=== PATIENT | female | born 1960 | race Caucasian/White ===

== ENCOUNTER → 2017-11-25 13:08 | Outpatient (CLI) | payer MEDICAID, SELFPAY ==
[2017-11-25 15:36] LABS: Absolute Lymphocyte Count 4.76 X10^3/ul (0.83-4.51); Absolute Neutrophil Count 4.5 X10^3/uL (2.0-7.7); Basophil# 0.06 X10^3/uL; Basophil% 0.6 % (0-1); Eosinophil# 0.34 X10^3/uL; Eosinophils% 3.3 % (0-5); Hematocrit 44.1 % (37-47); Hemoglobin 14.5 g/dl (12.0-15.0); Lymphocyte # 4.76 X10^3/ul (4.0); Lymphocyte % 45.7 % (19-41); Mean Corp Hgb Conc 32.9 g/gl (32-36); Mean Corpuscular Hgb 33.2 pg (27.0-32.0); Mean Corpuscular Volume 100.9 fL (81-99); Mean Platelet Vol. 9.6 fl (6.2-12.0); Monocyte# 0.78 X10^3/uL; Monocyte% 7.5 % (0-10); Neutrophil # 4.46 X10^3/uL (2.7-7.7); Neutrophil % 42.7 % (47-70); Platelet Count 376 K/mm3 (150-450); RBC Distribution Width CV 14.2 % (11.6-14.6); RBC Distribution Width SD 52.2 fl (35.1-43.9); Red Blood Count 4.37 M/mm3 (4.2-5.4); White Blood Count 10.4 K/mm3 (4.4-11.0)
[2017-11-25 15:45] LABS: POSITIVE COUNT NO; POSITIVE DIFFERENTIAL NO; POSITIVE MORPHOLOGY NO
[2017-11-25 16:03] LABS: BUN 16 mg/dL (7-18); Creatinine, Serum 1.07 mg/dL (0.55-1.02); EST Glomerular Filtration Rate 56 mL/min (>60); Glucose 97 mg/dL (74-106)
[2017-11-25 16:04] LABS: ALB/GLOB Ratio 0.9 RATIO (0.9-2.4); AST(SGOT) 20 U/L (15-37); Alanine Aminotransfer ALT/SGPT 24 U/L (13-56); Albumin, Serum 3.6 g/dL (3.2-5.0); Alkaline Phosphatase 79 U/L (45-117); Anion Gap 7 (5-15); Calcium,Total 8.7 mg/dL (8.5-10.1); Chloride 105 mmol/L (98-107); Cholesterol 290 mg/dL (200); Est Glom Filt Rate - Afr Amer 68 mL/min (>60); Globulin 4.2 g/dL (2.2-4.2); High Density Lipoprotein 36 mg/dL; Potassium 3.9 mmol/L (3.5-5.1); Protein, Total 7.8 g/dL (6.4-8.2); Sodium Level 138 mmol/L (136-145); Thyroid Stim Hormone (TSH) 0.81 uIU/mL (0.358-3.74); Triglycerides 321 mg/dL; Very Low Density Lipoprotein 64 mg/dL (5-40)
[2017-11-25 16:05] LABS: Vitamin B12 577 pg/mL (211-911)
== END ==
PROVIDERS: Family Provider Family Medicine; PCP Family Medicine; Visit Provider Family Medicine
DX: I10 Essential (primary) hypertension (principal); R53.83 Other fatigue
CPT/HCPCS: 36415; 80053; 80061; 82607; 84443; 85025

== ENCOUNTER 2017-12-22 21:05 | Emergency (ER) | payer MEDICAID, SELFPAY ==
[2017-12-22 21:05] VITALS: BP 133/83; PULSE 100; RESP 16; TEMP 36.4; O2SAT 91; BMI 33.9
--- NOTE | 2017-12-22 21:57 | ED.RN ---
BITES CLEANED WITH SHURCLEANS/NS AND LT HAND SOAKED IN WATER/SHURCLEANSE. LET APPLIED TO RT ANKLE AFTER WOUND CLEANED. SUTURE CART TO BEDSIDE. PT TOLERATED WELL; VISITOR ASSISTING WITH MARIUSZ LOGAN ANIMAL BITE FORM.
[2017-12-22] MEDS: HYDROcodone Bitartrate/Apap 5/325 Tablet PO (22:03)
[2017-12-22] MEDS: Lidocaine/Epi/Tetracaine 50 ML 1 APPLIC TOPICAL (22:04)
[2017-12-22 22:43] VITALS: BP 102/80; PULSE 83; RESP 18; O2SAT 94
--- NOTE | 2017-12-23 00:14 | ED.VISSUMM ---
- ER Visit Summary Date of Service: 12/23/17 Chief Complaint: Multiple dog bites to extremities History of Present Illness: The patient is a 57 F was taking her dog outside in her own yard to let her dog to the bathroom. She has a pit bull. The neighbors 3 pit bulls ran over got in a fight with her dog started mowing her dog as she went to break it up he started biting her and her extremities primarily her left hand which she is left-hand dominant and right ankle. But she is puncture wounds throughout both legs. Police were notified him at the home. Physical Examination: Middle-aged female vital signs are stable afebrile. HEENT exam unremarkable neck nontender lungs clear to auscultation heart regular rhythm no murmur. Chest wall nontender abdomen soft nontender no wounds. She is moving all 4 extremities are neurovascularly intact. She has lacerations which will need to be repaired from dog bites of the left index finger on the dorsum. ?2. Also on the medial aspect of her right ankle. Both upper and lower extremities are neurovascularly intact. There is no pulsatile bleeding. Currently no signs of infection and this occurred within the last several hours. Neurologically she is awake alert without focal motor or sensory deficits. She has normal range of motion in all extremities. Test Results: None done Emergency Department Course and Treatment: All wounds were cleaned and dressed. 4 of the right medial ankle dog bite lacerations need to be closed. 2 of them were 2-1/2 cm. The other 2 or 1 cm. Closed with simple interrupted 5-0 Ethilon sutures. The left index finger had 2 lacerations one at the metacarpal phalangeal joint and one over the dorsum of the proximal phalanx. Both locally anesthetized clean explored. And closed using simple interrupted 5-0 Ethilon sutures. Proper hemostasis wound closure obtained. Patient tolerated all laceration repair as well. Again she has full flexion-extension of all digits of the left hand. There is no signs of joint involvement or tendon laceration. Treatment Plan: Patient was started on Augmentin to try to prevent infection since the wounds are peripheral and of the hands and feet. Sutures will come out in 1 week to 10 days. Watch for any signs of infection. Her tetanus is already up-to-date. Go for pain Disposition: Discharge Impression: Multiple dog bites to her extremities. Dog bite laceration repairs of the: Right ankle of 2-1/2 cm, 2-1/2 cm, 1 cm and 1 cm Right index finger of 2 cm and 2-1/2 cm. (For a total of 6 laceration repairs) This note was generated with [employer] dictation software. It may contain incorrect words, spelling, and punctuation that were not noted in review of the chart prior to signing ED Disposition - Plan for ED Patient: Chief Complaint: Bite Referrals: Jaspreet Ball DO [Primary Care Provider] -
--- NOTE | 2017-12-23 00:23 | ED.DEP ---
ED Disposition - Plan for ED Patient: Disposition: Home or Assisted Living Chief Complaint: Bite Instructions: ED Bite Dog Prescriptions: Hydrocodone Bitart/Apap 5-325 [Winlock 5/325] 1 - 2 tab PO Q4H PRN PRN #20 tab PRN Reason: Pain Amoxicillin/Potassium Clav [Augmentin 875-125 Tablet] 1 ea PO BID #14 tab Referrals: Jaspreet Ball DO [Primary Care Provider] - 10 Day for suture removal Additional Instructions: Keep all wounds clean. Wash twice daily with soap and water or peroxide and water. Apply antibiotic ointment twice daily. Ice and elevate all injured areas. Motrin and limited Winlock for pain. Stitches should be taken out in 7 no more than 10 days. Augmentin 1 pill twice a day to try to prevent the dog bites from getting infected.
--- NOTE | 2017-12-23 00:27 | DCINST.ED_ITS ---
ED Disposition - Plan for ED Patient: Disposition: Home or Assisted Living Chief Complaint: Bite Instructions: ED Bite Dog Prescriptions: Hydrocodone Bitart/Apap 5-325 [Waverly 5/325] 1 - 2 tab PO Q4H PRN PRN #20 tab PRN Reason: Pain Amoxicillin/Potassium Clav [Augmentin 875-125 Tablet] 1 ea PO BID #14 tab Referrals: Jaspreet Ball DO [Primary Care Provider] - 10 Day for suture removal Additional Instructions: Keep all wounds clean. Wash twice daily with soap and water or peroxide and water. Apply antibiotic ointment twice daily. Ice and elevate all injured areas. Motrin and limited [place] for pain. Stitches should be taken out in 7 no more than 10 days. Augmentin 1 pill twice a day to try to prevent the dog bites from getting infected.
[2017-12-23] MEDS: HYDROcodone Bitartrate/Apap 5/325 Tablet PO (00:31)
[2017-12-23] MEDS: Amox/Clavulanate 875 MG Tablet PO (00:31)
[2017-12-23 00:33] VITALS: BP 113/91; PULSE 80; RESP 18
== END 2017-12-23 00:34 | disposition home or self-care (01) ==
PROVIDERS: Emergency Provider Emergency Medicine; Family Provider Family Medicine; PCP Family Medicine
DX: S91.051A Open bite, right ankle, initial encounter (principal); S61.251A Open bite of left index finger without damage to nail, initial encounter; W54.0XXA Bitten by dog, initial encounter; Y93.9 Activity, unspecified; Y92.096 Garden or yard of other non-institutional residence as the place of occurrence of the external cause; Y99.9 Unspecified external cause status; I10 Essential (primary) hypertension; K21.9 Gastro-esophageal reflux disease without esophagitis; F32.9 Major depressive disorder, single episode, unspecified; Z72.0 Tobacco use
CPT/HCPCS: 12004; 99285

== ENCOUNTER → 2018-03-04 06:39 | Outpatient (CLI) | payer MEDICAID, SELFPAY | PROVIDERS: Family Provider Family Medicine; PCP Family Medicine; Visit Provider Surgery | DX: Z01.818 Encounter for other preprocedural examination (principal) ==

== ENCOUNTER → 2019-07-31 12:06 | Outpatient (CLI) | payer MEDICARE, MEDICAID, SELFPAY ==
[2019-07-31 15:47] LABS: Absolute Lymphocyte Count 4.55 X10^3/uL (0.83-4.51); Absolute Neutrophil Count 6.4 X10^3/uL (2.0-7.7); Basophil# 0.08 X10^3/uL; Basophil% 0.6 % (0-1); Eosinophil# 0.35 X10^3/uL; Eosinophils% 2.8 % (0-5); Hematocrit 46.8 % (37-47); Hemoglobin 15.1 g/dL (12.0-15.0); Lymphocyte # 4.55 X10^3/ul (4.0); Lymphocyte % 36.3 % (19-41); Mean Corp Hgb Conc 32.3 g/dL (32-36); Mean Corpuscular Hgb 32.9 pg (27.0-32.0); Mean Platelet Vol. 9.6 fl (6.2-12.0); Monocyte# 1.07 X10^3/uL; Monocyte% 8.5 % (0-10); NRBC Flagged by Analyzer 0 % (0-5); Neutrophil # 6.43 X10^3/uL (2.7-7.7); Neutrophil % 51.3 % (47-70); Platelet Count 281 K/mm3 (150-450); RBC Distribution Width CV 14.6 % (11.6-14.6); RBC Distribution Width SD 55.5 fl (35.1-43.9); Red Blood Count 4.59 M/mm3 (4.2-5.4); White Blood Count 12.5 K/mm3 (4.4-11.0)
[2019-07-31 16:10] LABS: AST(SGOT) 20 U/L (15-37); Alanine Aminotransfer ALT/SGPT 26 U/L (13-56); Alkaline Phosphatase 85 U/L (45-117); Anion Gap 7 (5-15); BUN 14 mg/dL (7-18); Calcium,Total 9.2 mg/dL (8.5-10.1); Chloride 104 mmol/L (98-107); Creatinine, Serum 1.17 mg/dL (0.55-1.02); EST Glomerular Filtration Rate 51 mL/min (>60); Est Glom Filt Rate - Afr Amer 61 mL/min (>60); Globulin 4.2 g/dL (2.2-4.2); Glucose 82 mg/dL (74-106); Lipase 95 U/L (73-393); Protein, Total 8.2 g/dL (6.4-8.2); Sodium Level 137 mmol/L (136-145)
== END ==
PROVIDERS: Family Provider Family Medicine; PCP Family Medicine; Visit Provider Family Medicine
DX: R10.9 Unspecified abdominal pain (principal)
CPT/HCPCS: 36415; 80053; 83690; 85025

== ENCOUNTER → 2019-09-24 | Outpatient (CLI) | payer MEDICARE, MEDICAID, SELFPAY ==
[2019-09-24 12:59] LABS: Rubella IgG < 0.2 IU/mL
[2019-09-25 21:44] LABS: Rubeola IgG Ab > 300.0 AU/mL (Immune >16.4); V-Zoster IgG (Immunity) > 4000 index (Immune >165)
== END | disposition home or self-care (01) ==
LOC: BFHLAB 09:32
PROVIDERS: PCP Family Medicine; Visit Provider Family Medicine
DX: Z90.81 Acquired absence of spleen (principal)
CPT/HCPCS: 36415; 86735; 86762; 86765; 86787

== ENCOUNTER 2020-02-04 18:01 | Emergency (ER) | payer MEDICARE, MEDICAID, SELFPAY ==
[2020-02-04 18:02] VITALS: BP 140/87; PULSE 89; RESP 15; TEMP 36.6; O2SAT 99; BMI 37.0
--- NOTE | 2020-02-04 18:26 | EKG12_ITS ---
Test Reason : Blood Pressure : / mmHG Vent. Rate : 070 BPM Atrial Rate : 070 BPM P-R Int : 142 ms QRS Dur : 092 ms QT Int : 376 ms P-R-T Axes : 031 036 060 degrees QTc Int : 406 ms Normal sinus rhythm Nonspecific T wave abnormality Abnormal ECG Confirmed by COY QUINN, JUAN MANUEL ([id number]), research editor SU GONZALEZ ([id number]) on 02/08/2020 2:05:31 PM Referred By: ROSALINDA Confirmed By:HILLARY CESPEDES MD
--- NOTE | 2020-02-04 18:30 | ED.DCSUM_ITS ---
History of Present Illness Chief Complaint: Abn Labs Detail of Chief Complaint: low platelets Informant: Patient Narrative: Patient had some labs done today that showed thrombocytopenia and she was referred to the ER as a result. She has had an asymptomatic red rash on her legs for several weeks along with easy bruising. She denies any bleeding from anywhere including her bowels. She states in the last week or so she has been having a nonproductive mild cough along with more shortness of breath with exertion than usual. She is a smoker she does not have COPD that she knows of. 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 She has had low- grade fevers for the past week. She denies dyspnea at rest. No edema in her legs. - Past Medical History (1) Hypertension Status: Chronic (2) Anxiety Status: Chronic (3) CAD (coronary artery disease) Status: Chronic (4) Dyslipidemia Status: Chronic (5) Diverticulitis Status: Suspected Past Medical History - Allergies and Home Meds Allergies/Adverse Reactions: Allergies aspirin Adverse Reaction (Verified 02/04/20 18:06) Nausea Primary Care Physician: Jaspreet Ball DO [Primary Care Provider] - Surgical History: - - angioplasty. 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 Partial colectomy due to diverticulitis. Smoking Status: Current every day smoker Alcohol: None Drugs: None - Family History Paternal Family History: Family History (Last Updated 12/04/17 @ 09:40 by Kirsten Ochoa) Brother Diabetes Heart disease Hypertension CAD (coronary artery disease) Family History: Reports: - - father had mi at age 39 Maternal Family History: Family History (Last Updated 12/04/17 @ 09:40 by Kirsten Ochoa) Brother Diabetes Heart disease Hypertension CAD (coronary artery disease) Family History: Reports: - - mother with throat cancer Sibling Family History: Family History (Last Updated 12/04/17 @ 09:40 by Kirsten Ochoa) Brother Diabetes Heart disease Hypertension CAD (coronary artery disease) Family History: Reports: - - sister with multiple sclerosis Review of Systems General: Reports: Fever. Denies: Chills, Sweats Eyes: Denies: Visual changes - bilaterally, Diplopia ENT: Denies: Bilateral ear pain, Rhinorrhea, Sore throat Cardiovascular: Denies: Chest pain, Palpitations Respiratory: Reports: Cough, Dyspnea on exertion. Denies: Sputum, Orthopnea Gastrointestinal: Reports: Abdominal pain - Mild intermittent left upper quadrant pain when having trouble having bowel movement, Constipation - Unsure; soft bowel movements but having less than usual and less often than usual. Denies: Nausea, Vomiting, Diarrhea, Melena, Hematochezia Genitourinary: Denies: Dysuria, Hematuria, Frequency Musculoskeletal: Denies: Back pain, Swelling, Extremity Pain Skin: Reports: Rash. Denies: Wounds Neurological: Denies: Headache, Weakness, Numbness Hematologic: Reports: Easy bruising. Denies: Lymphadenopathy Physical Exam Vital Signs/Narrative: Vital Signs Temp Pulse Resp BP Pulse Ox 02/04/20 18:02 97.9 F 89 15 140/87 H 99 Inital Vital Signs reviewed: Yes General: Well nourished, Well developed, Obese, No Acute Distress Head: Normocephalic, Atraumatic Eyes: Perrl, EOMI ENT: Moist mucous membranes, No rhinorrhea Neck: Supple, Nontender Cardiovascular: Regular rate, Regular rhythm, No murmurs. Negative for: Tach ycardia Respiratory: No distress, CTA bilaterally, Chest nontender Abdomen: Soft, Nontender, Nondistended, Normal bowel sounds Back: Nontender, Normal Inspection. Negative for: CVA tenderness Extremities: Nontender, No edema Skin: Normal color, Rash - Petechial rash mostly bilateral lower extremities Neurological: Alert, Oriented x3, Cranial nerves II-XII grossly intact, Normal Strength, Normal Sensation, Normal Gait Psychological: Normal affect, Normal Mood Diagnostic/Tx/Re-eval Laboratory Tests 02/04/20 02/04/20 Range/Units 18:39 18:39 PT 11.6 L (11.7-14.9) SECONDS INR 0.9 APTT 25.5 (24.1-36.2) Seconds Total Bilirubin 0.30 (0.20-1.00) mg/dL Direct Bilirubin 0.10 (0.00-0.30) mg/dL AST 18 (15-37) U/L ALT 29 (13-56) U/L Alkaline Phosphatase 86 (45-117) U/L Total Protein 7.9 (6.4-8.2) g/dL Albumin 3.8 (3.2-5.0) g/dL Globulin 4.1 (2.2-4.2) g/dL Clinical Impression(s) from Imaging Studies Chest X-Ray 02/04/20 19:06 IMPRESSION: Normal x-ray examination of the chest. Electronically Signed: Jeremy Obrien MD at 19:18 EDT Tel , Service support , - Rhythm Strip Rhythm Strip: Sinus Rhythm Rate: 70 Ectopy: None - EKG Initial EKG Interpretation: Sinus Rhythm, No Acute Injury Pattern, Non-Specific ST Changes - Medical Decision Making Discussed with Dr. Juárez, hematology oncology. With unexplained thrombocytopenia severe, his concern is that it would be difficult to rule out TTP in this patient, and in context of that, patient requires transfer to a tertiary care center. I did give the patient a platelet transfusion. I added liver enzymes which were unremarkable. The patient does not have risk specifically for COVID 19, she has had no exposure that she knows of, however given her symptoms, I am sending a swab to be done stat. Patient wants to go to [facility], accepted there by Dr. Wilson, who agreed with giving the platelets and prefer to date be given prior to transferring the patient. She really wants to drive herself, so we will make sure she gets the platelets prior to being se nt. ED Disposition - Plan for ED Patient: Disposition: [facility] Diagnosis: Thrombocytopenia, Subjective fever, Dyspnea on exertion Referrals: Jaspreet Ball DO [Primary Care Provider] -
--- NOTE | 2020-02-04 19:06 | RAD_ITS ---
STUDY: X-RAY CHEST REASON FOR EXAM: Female, 59 years old. LOW PLATELET COUNT TECHNIQUE: Single frontal view of the chest. COMPARISON: 08/03/2015 FINDINGS: The lungs are clear and expanded. There is no demonstrated pleural abnormality. Normal size heart. Normal mediastinum and joseph. Normal visualized pulmonary arteries. Normal visualized aortic arch and descending thoracic aorta. Normal visualized thoracic spine. Normal visualized ribs, clavicles, and shoulders. There is no demonstrated abnormality of the visualized soft tissue structures of the upper abdomen. RAD/Chest 1 View (Portable) IMPRESSION: Normal x-ray examination of the chest. Electronically Signed: Jeremy Obrien MD at 19:18 EDT Tel , Service support ,
[2020-02-04 19:09] LABS: International Normalized Ratio 0.9; Prothrombin Time (Protime)PT. 11.6 SECONDS (11.7-14.9)
[2020-02-04 19:10] LABS: Partial Thromboplast Time 25.5 Seconds (24.1-36.2)
[2020-02-04 19:14] LABS: AST(SGOT) 18 U/L (15-37); Alanine Aminotransfer ALT/SGPT 29 U/L (13-56); Albumin, Serum 3.8 g/dL (3.2-5.0); Alkaline Phosphatase 86 U/L (45-117); Globulin 4.1 g/dL (2.2-4.2); Protein, Total 7.9 g/dL (6.4-8.2)
--- NOTE | 2020-02-04 22:18 | ED.RN ---
THIS RN SPOKE WITH THE DAUGHTER OF ART NOVAK WHO WAS WITH HER MOTHER. THIS RN INFORMED THEM THAT SHE CANNOT LEAVE WITH IV LINES IN AND THAT SHE NEEDED TO COME BACK UP FOR THEM TO BE DISCONTINUED OR VERIFIED BY AN RN THAT THEY WERE APPROPRIATELY DISCONTINUED. 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 I INFORMED THEM WHILE THAT MAY BE THE CASE WE FOR LIABILITY AND PATIENT SAFETY REASONS NEED TO SEE THEY ARE OUT. THE DAUGHTER STATES THEY ARE IN [place] AND HEADED TO [facility] NOT TO RETURN.
--- NOTE | 2020-02-04 22:36 | ED.RN ---
[id number] DR. HERNANDEZ NOTIFIED OF PT LEAVING PRIOR TO PLATELETS BEING GIVEN.
--- NOTE | 2020-02-05 00:17 | ED.RN ---
pt walked to restroom. after return she asked how soon she could leave. was consulted. pt was instructed at this time that we where waiting on platelets from lab. once those were infused pt would be watched for a will and then released to travel by person vehicle to transfer facility. pt was informed that preparing the platlets takes time and that we currently did not have and eta on her departure. pt expressed understand. patricia beverly rn
--- NOTE | 2020-02-05 00:23 | ED.RN ---
lesvia meade. unable to determine if patient removed her IV. daughter was called by charge weigher and daughter stated it was removed. patricia beverly rn
== END 2020-02-05 00:25 | disposition short-term general hospital (02) ==
PROVIDERS: Emergency Provider Emergency Medicine; PCP Family Medicine
DX: D69.6 Thrombocytopenia, unspecified (principal); R06.09 Other forms of dyspnea; R50.9 Fever, unspecified; I10 Essential (primary) hypertension; F41.9 Anxiety disorder, unspecified; E78.5 Hyperlipidemia, unspecified; F17.200 Nicotine dependence, unspecified, uncomplicated; E66.9 Obesity, unspecified; Z79.899 Other long term (current) drug therapy; R10.9 Unspecified abdominal pain; R06.00 Dyspnea, unspecified
CPT/HCPCS: 36415; 71045; 80053; 80076; 85025; 85610; 85730; 86900; 86901; 87635; 93005; 99284; G2023; A4216; U0003

== ENCOUNTER → 2020-02-04 | Outpatient (CLI) | payer MEDICARE, MEDICAID, SELFPAY ==
[2020-02-04 15:27] LABS: Absolute Lymphocyte Count 3.57 X10^3/uL (0.83-4.51); Basophil# 0.02 X10^3/uL; Basophil% 0.3 % (0-1); Eosinophil# 0.21 X10^3/uL; Eosinophils% 2.9 % (0-5); Hematocrit 39.2 % (37-47); Hemoglobin 13.1 g/dL (12.0-15.0); Lymphocyte # 3.57 X10^3/ul (4.0); Lymphocyte % 48.8 % (19-41); Mean Corp Hgb Conc 33.4 g/dL (32-36); Mean Corpuscular Hgb 37.4 pg (27.0-32.0); Mean Platelet Vol. 13.2 fl (6.2-12.0); Monocyte# 0.54 X10^3/uL; Monocyte% 7.4 % (0-10); NRBC Flagged by Analyzer 0 % (0-5); Neutrophil # 2.96 X10^3/uL (2.7-7.7); Neutrophil % 40.5 % (47-70); POSITIVE COUNT YES; POSITIVE MORPHOLOGY YES; RBC Distribution Width CV 17.8 % (11.6-14.6); RBC Distribution Width SD 72.6 fl (35.1-43.9); White Blood Count 7.3 K/mm3 (4.4-11.0)
[2020-02-04 15:35] LABS: ALB/GLOB Ratio 0.9 RATIO (0.9-2.4); AST(SGOT) 18 U/L (15-37); Alanine Aminotransfer ALT/SGPT 26 U/L (13-56); Albumin, Serum 3.9 g/dL (3.2-5.0); Alkaline Phosphatase 89 U/L (45-117); Anion Gap 8 (5-15); BUN 13 mg/dL (7-18); BUN/Creat Ratio 10.7 RATIO (10-20); Chloride 103 mmol/L (98-107); Creatinine, Serum 1.22 mg/dL (0.55-1.02); EST Glomerular Filtration Rate 48 mL/min (>60); Est Glom Filt Rate - Afr Amer 58 mL/min (>60); Globulin 4.4 g/dL (2.2-4.2); Glucose 145 mg/dL (74-106); Protein, Total 8.3 g/dL (6.4-8.2); Sodium Level 137 mmol/L (136-145)
[2020-02-04 15:52] LABS: Differential Indicated SCAN CRITERIA MET; Platelet Count 8 K/mm3 (150-450)
[2020-02-04 17:01] LABS: Anisocytosis 1+; Macrocytosis 1+; Platelet Estimate MKD DEC (ADEQ); Red Cell Morphology N CHROM NORMAL (NORM C&C)
[2020-02-05 11:47] LABS: Pathologist Review Reviewed
== END | disposition home or self-care (01) ==
LOC: BFHLAB 11:08
PROVIDERS: PCP Family Medicine; Visit Provider Family Medicine
DX: R10.9 Unspecified abdominal pain (principal)
CPT/HCPCS: 36415; 80053; 85025

== ENCOUNTER → 2020-02-11 08:18 | Outpatient (CLI) | payer MEDICARE, MEDICAID, SELFPAY ==
[2020-02-04 18:02] VITALS: BMI 37.0
--- NOTE | 2020-02-11 08:25 | RAD_ITS ---
STUDY: X-RAY - ESOPHAGUS (BARIUM SWALLOW) WITH FLUOROSCOPY REASON FOR EXAM: Female, 59 years old. Dysphagia, x1 year getting worse, food getting stuck distally TECHNIQUE: 18 view(s) of the esophagus were obtained following swallowing of barium. FLUOROSCOPY TIME (if supplied): (0:37) minutes/seconds COMPARISON: None. FINDINGS: There is no demonstrated esophageal foreign body. There is no demonstrated stricture or mucosal abnormality. There is a small hiatal hernia of the fundus of the stomach. No evidence of gastroesophageal reflux. The patient ingested a 12 mm tablet of barium without any difficulty. Normal visualized aortic arch and descending thoracic aorta. Normal visualized pulmonary parenchyma. There are diffuse degenerative changes of the visualized thoracic spine. RAD/Esophagus Dual Contrast IMPRESSION: Small hiatal hernia without gastroesophageal reflux. The patient ingested a 12 mm tablet that barium without any difficulty. Electronically Signed: Mike Arango, at 9:49 EDT , Service support ,
== END ==
PROVIDERS: PCP Family Medicine; Referring Provider Family Medicine; Visit Provider Family Medicine
DX: R13.10 Dysphagia, unspecified (principal)
CPT/HCPCS: 74221

== ENCOUNTER → 2020-02-22 | Outpatient (CLI) | payer MEDICARE, MEDICAID, SELFPAY ==
[2020-02-11 10:45] VITALS: BMI 36.8
[2020-02-15 09:01] VITALS: BMI 36.8
[2020-02-22] VITALS (10 sets, daily range): BP systolic 95–128; BP diastolic 62–83; PULSE 73–89; RESP 12–21; TEMP 36.6; O2SAT 92–98; BMI 36.8
--- NOTE | 2020-02-22 | IMM_PTH ---
PATIENT: ART NOVAK LOC: CT U#:[id number] AGE/SX: 59/F ROOM: RE02/22/[address]: Dr. Cj Arroyo MD : 1960 BED: DIS: 02/22/2020 SPEC #: [id number] RECD: 02/24/20 10:03 STATUS: JASON REQ #: [id number] HANNA: 02/22/20 00:[address]: Cj Arroyo DEPT: IMMUNOHISTOCHEMISTRY RECD BY: Naomie Hernandez ENTERED: 02/24/20 10:10 SP TYPE: IMMUNO OTHR DR: Dr. Jaspreet Ball DO Tissues: A - Bone marrow of iliac crest B - Bone marrow of iliac crest Procedures: CD138 (add) CD20 (add) CD34 (add) CD45 (add) CD5 (add) CD79A (add) KAPPA (add) LAMBDA (add) CD3 (initial) PHYSICIAN & INSTITUTION [place] [id number] SPECIMEN INFORMATION: Tissue Source: A - Bone marrow biopsy, core, B - Bone marrow biopsy, clot Clinical Info: Macrocytosis, thrombocytopenia, rule out MDS Specimen Number: [id number] A & B CPT code: 14529 x2, 45558 x16 METHODOLOGY: Deparaffinized sections of prefer/formalin-fixed tissue or PAP/DQ stained slides are incubated with monoclonal/polyclonal antibodies/oligonucleotide probes. Localization is made via biotin free immunoperoxidase method. Appropriate controls are performed and reacted as expected. Results on target cell population are indicated in the following table: RESULTS: ANTIBODY / CLONE RESULT Block A CD3 (PS1) positive CD5 (SP10) positive CD20 (L26) positive CD45 (RP2/18) positive CD79a (11E3) positive CD138 (B-A38) positive [place] (polyclonal) positive Lambda (polyclonal) positive CD34 (QBEnd-10) negative Block B CD3 (PS1) positive CD5 (SP10) positive CD20 (L26) positive CD45 (RP2/18) positive CD79a (11E3) positive CD138 (B-A38) positive [place] (polyclonal) positive Lambda (polyclonal) positive CD34 (QBEnd-10) negative These tests were developed and their performance characteristics determined by [facility]. They may not have been cleared or approved by the U.S. Food and Drug Administration. The FDA has determined that such clearance or approval is not necessary. The above immunohistochemical/dualISH markers are ordered and reviewed by the Pathologist. INTERPRETATION: A. Bone marrow biopsy, core: Interstitial infiltrates of small lymphocytes and minute lymphoid aggregates are noted, polytypic in nature, favor benign. Minimal increase of plasma cells are noted, polytypic in nature. Increased number of blasts are not seen. B. Bone marrow biopsy, clot: Interstitial infiltrates of small lymphocytes and minute lymphoid aggregates are noted, polytypic in nature, favor benign. Minimal increase of plasma cells are noted, polytypic in nature. Increased number of blasts are not seen. This case has been reviewed in consultation with Dr. Hogan who concurs with the above diagnosis. SJ:susan 02/24/20
--- NOTE | 2020-02-22 | BMB_PTH ---
PATIENT: ART NOVAK LOC: OR U#:[id number] AGE/SX: 59/F ROOM: RE02/22/[address]: Dr. Cj Arroyo MD : 1960 BED: DIS: 02/22/2020 SPEC #: [id number] RECD: 02/22/20 10:05 STATUS: JASON RECharla #: [id number] HANNA: 02/22/20 00:[address]: Cj Arroyo DEPT: BONE MARROW RECD BY: Sy Baker ENTERED: 02/22/20 10:05 SP TYPE: BMB SVETLANA DR: Dr. Jaspreet Ball DO Tissues: A - Bone marrow, NOS B - Bone marrow, NOS C - Bone marrow, NOS Procedures: Decalcification bone/plaque Bone Marrow Aspiration Bone Marrow Core Biopsy Iron Stain Bone Marrow HEADER OPERATION: Bone marrow biopsy and aspiration PRE-OP DIAGNOSIS: Macrocytosis, thrombocytopenia, rule out MDS TISSUE SUBMITTED: A - Core, B - Clot, C - Smears, and send outs (flow, cytogenetics, MDS and AML) BONE MARROW DIAGNOSIS Bone marrow core, clot and aspirate smears: Hypocellular marrow (20 to 50%) with trilineage hematopoiesis and mild decrease of megakaryocytes. Interstitial infiltrates of small lymphocytes and minute lymphoid aggregates noted, polytypic in nature, favor benign. Minimal increase of plasma cells noted, polytypic in nature. Iron - 2+, atypical or ring sideroblasts are not seen. Peripheral blood - macrocytosis and thrombocytopenia. Flow cytometry study from [facility] shows no significant diagnostic immunophenotypic abnormality. The complete flow report is viewable in patient's EMR. Cytogenetic studies are pending at this time. See comment. AMBAR:susan 02/25/20 COMMENT Aspirate smears are aspicular and hypocellular. Immunohistochemistry ([id number]) supports the above diagnosis. Clinical correlation and appropriate follow up are necessary. Case has been reviewed in consultation with Dr. Hogan who concurs with the above diagnosis. IDC:AM BONE MARROW STUDY Slides are reviewed. CBC DATE: 02/22/20 WBC 8.7; RBC 3.15; HGB 12.3; HCT 36.1; MCV 114.6; RDW 17.8; PLTS 25,000 SEGS 50.1%; LYMPHS 39.6%; MONOS 8.6%; EOS 1.1%; BASOS 0.1% PERIPHERAL SMEAR: Submitted. RBC: Macrocytosis WBC: Unremarkable. The WBC count is compatible to as reported above. PLTS: Markedly decreased. BONE MARROW ASPIRATE DIFFERENTIAL: Not performed. ASPIRATE FINDINGS: Site: Not specified Aspicular, Hypocellular Comment: Marked hemodilution is noted. Aspirate smears show erythroid cells, myeloid cells and megakaryocytes. Significant dysplastic changes are not seen. CORE BIOPSY FINDINGS: Site: Not specified Adequacy: Adequate Cellularity: Variable, hypocellular 20-50% M/E ratio: Within normal limits. Megakaryocytes: Present and decreased in number. Bony trabeculae: Unremarkable. Granulomas: Absent. Lymphoid aggregate: minute lymphoid aggregates are noted. Atypical infiltrate: Absent. Comment: Immunohistochemistry ([id number]) shows interstitial infiltrates of small lymphocytes and minute lymphoid aggregates, polytypic in nature, favor benign. Minimal increase of plasma cells is noted, polytypic in nature. Increased number of blasts are not seen. ASPIRATE CLOT FINDINGS: Site: Not specified Marrow particles: A few Cellularity: 20-50% M/E ratio: Within normal limits. Megakaryocytes: Present and decreased in number. Granulomas: Absent. Lymphoid aggregates: Minute lymphoid aggregates are noted. Atypical infiltrates: Absent. Comment: Immunohistochemistry ([id number]) shows interstitial infiltrates of small lymphocytes and minute lymphoid aggregates, polytypic in nature, favor benign. Minimal increase of plasma cells is noted, polytypic in nature. Increased number of blasts are not seen. SPECIAL STAINS WITH MATCHED CONTROLS: Iron: 2+, atypical or ringed sideroblasts are not seen. Reticulin: No significant increase of reticulin fibers is noted. PAS: Highlights myeloid cells and megakaryocytes. BONE MARROW GROSS A - Received is a container labeled with the patient's name and designated bone marrow. The specimen consists of a piece of pelaez bone measuring 1 cm in length and 0.1 cm in diameter. The specimen is totally submitted in one cassette after decalcification. B - Received labeled with the patient's name and designated bone marrow is a specimen that consists of approximately 8 cc of bloody fluid that on filtration yields multiple minute fragments of blood clots measuring in aggregate 3 x 2.5 x 0.6 cm. The specimen is totally submitted in one cassette. C - Also received are 23 unstained and 4 Cohen stained, 1 PAS stained, 1 iron stained slides (29 total). The unstained slides are submitted for appropriate staining. Also received are two green top tubes which are sent to our reference lab for flow, cytogenetics, MDS and AML. / SJ:rg 02/22/20 TC:5 CPT: 32452, 30267, 28361 x2, 35386 x3, 70287 ADDENDUM ADDENDUM ADDENDUM ADDENDUM ADDENDUM ADDENDUM ADDENDUM ADDENDUM ADDENDUM ADDENDUM ADDENDUM ADDENDUM ADDENDUM ADDENDUM 03/09/2020 11:30 ADDENDUM 03/09/2020 11:30 ADDENDUM 03/09/2020 11:30 ADDENDUM 03/09/2020 11:30 ADDENDUM 03/09/2020 11:30 REPORTS FROM [facility] TEST: Chromosome, leukemia/lymphoma CYTOGENETIC RESULT: 46,XX[20] INTERPRETATION: Normal female karyotype was observed in twenty metaphases analyzed. TEST: AML FISH panel FISH RESULT: Normal AML panel TEST: MDS FISH panel FISH RESULT: Normal MDS panel Please see complete report in e-chart or EMR for further details
--- NOTE | 2020-02-22 07:41 | CT_ITS ---
PROCEDURE: CT GUIDED BONE marrow biopsy of the right iliac bone. DATE: February 22, 2020. INDICATION: Female, 59 years old. Macrocytosis. PHYSICIAN: Mike Arango M.D. RADIATION DOSAGE (If Supplied By Facility): CTDIvol = ( 18 ) mGy, DLP = ( 665.69 ) mGycm. Individualized dose reduction techniques were utilized. PROCEDURE: The risks, benefits, and alternatives to the procedure were explained to the patient. The specific risk of hemorrhage requiring further treatment or intervention was detailed and accepted. Follow-up instructions were discussed with the patient as well. Written informed consent was obtained. The patient was brought into the CT suite and placed in the prone position. . An appropriate entry site was identified. The overlying skin was prepped and draped in the usual sterile fashion. 1% lidocaine was administered subcutaneously for local anesthesia. Conscious sedation was performed. The patient received 2 mg of Versed and 100 mcg of fentanyl intravenously. The conscious sedation protocol was independently monitored by the department nurse. Conscious sedation was started at 9:06 AM and terminated at 9:[address] guidance, a bone marrow biopsy and bone marrow aspiration of the posterior aspect of the right iliac bone were performed The specimens were then placed in in the appropriate fluid and transported to the laboratory for analysis. Hemostasis was obtained. The patient tolerated the procedure well without immediate complications. CT/Biopsy/Inj or Needle Placement IMPRESSION: Successful CT guided bone marrow biopsy and bone marrow aspirate of the posterior aspect of the right iliac bone, as described above. The conscious sedation protocol was followed. Electronically Signed: Mike Arango, at 10:27 EDT , Service support ,
[2020-02-22 07:59] LABS: Absolute Lymphocyte Count 3.46 X10^3/uL (0.83-4.51); Absolute Neutrophil Count 4.4 X10^3/uL (2.0-7.7); Basophil# 0.01 X10^3/uL; Basophil% 0.1 % (0-1); Eosinophils% 1.1 % (0-5); Hematocrit 36.1 % (37-47); Hemoglobin 12.3 g/dL (12.0-15.0); Lymphocyte # 3.46 X10^3/ul (4.0); Lymphocyte % 39.6 % (19-41); Mean Corp Hgb Conc 34.1 g/dL (32-36); Mean Corpuscular Volume 114.6 fL (81-99); Mean Platelet Vol. 11.8 fl (6.2-12.0); Monocyte# 0.75 X10^3/uL; Monocyte% 8.6 % (0-10); NRBC Flagged by Analyzer 0 % (0-5); Neutrophil # 4.37 X10^3/uL (2.7-7.7); Neutrophil % 50.1 % (47-70); POSITIVE COUNT YES; POSITIVE MORPHOLOGY YES; RBC Distribution Width CV 17.8 % (11.6-14.6); RBC Distribution Width SD 74.9 fl (35.1-43.9); Red Blood Count 3.15 M/mm3 (4.2-5.4); White Blood Count 8.7 K/mm3 (4.4-11.0)
[2020-02-22 08:01] LABS: Differential Indicated SCAN CRITERIA MET; Platelet Count 25 K/mm3 (150-450)
[2020-02-22 08:38] LABS: International Normalized Ratio 0.9; Prothrombin Time (Protime)PT. 11.5 SECONDS (11.7-14.9)
[2020-02-22 08:39] LABS: Partial Thromboplast Time 23.3 Seconds (24.1-36.2)
[2020-02-22 08:52] LABS: Anisocytosis 2+; Macrocytosis 2+; Platelet Estimate MKD DEC (ADEQ); Poikilocytosis 1+
[2020-02-22] MEDS: Midazolam 2 MG/2 ML Syringe IV (09:06)
[2020-02-22] MEDS: fentaNYL 100 MCG/2 ML Ampul IV ×2 (09:07→09:19)
[2020-02-22 09:49] LABS: Pathologist Review May foll
== END | disposition home or self-care (01) ==
LOC: CT 07:41
PROVIDERS: PCP Family Medicine; Referring Provider Internal Medicine Medical Oncology; Visit Provider Internal Medicine Medical Oncology
DX: Z01.818 Encounter for other preprocedural examination (principal); D69.3 Immune thrombocytopenic purpura; D75.89 Other specified diseases of blood and blood-forming organs
CPT/HCPCS: 38221; 36415; 77012; 85025; 85610; 85730; 88305; 88311; 88313; 88341; 88342; 99156; 99157; J7040; A4216

== ENCOUNTER 2020-05-10 03:39 | Emergency (ER) | payer MEDICARE, MEDICAID, SELFPAY ==
[2020-03-17 11:14] VITALS: BMI 36.9
[2020-05-10 03:41] VITALS: BP 153/70; PULSE 77; RESP 16; TEMP 36.6; O2SAT 98; BMI 36.3
--- NOTE | 2020-05-10 03:46 | ED.DCSUM_ITS ---
History of Present Illness Chief Complaint: Abd Pain Narrative: 59-year-old female presenting with abdominal pain. She states it is generalized and hurts all over. She has some associated nausea. She states that yesterday her lower back started to hurt and she thought maybe she just twisted it however 6 PM last evening her abdomen started to hurt and became more painful overnight. 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 This was performed at [facility]. Patient denies any fevers. She denies vaginal or urinary complaints. She denies constipation. - Past Medical History (1) Anxiety Status: Chronic (2) CAD (coronary artery disease) Status: Chronic (3) Chronic ITP (idiopathic thrombocytopenia) Status: Chronic (4) Dyslipidemia Status: Chronic Past Medical History - Allergies and Home Meds Allergies/Adverse Reactions: Allergies aspirin Adverse Reaction (Verified 05/10/20 03:45) Nausea Primary Care Physician: Jaspreet Ball DO [Primary Care Provider] - Prior records reviewed: Yes Past Medical History: - - Reviewed and problem list Surgical History: - - angioplasty. 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 Partial colectomy due to diverticulitis. Lives: Alone Smoking Status: Current every day smoker Alcohol: None Drugs: None - Family History Paternal Family History: Family History (Last Reviewed 04/14/20 @ 10:22 by Gwendolyn Diamond) Brother Diabetes CAD (coronary artery disease) Heart disease Hypertension High cholesterol Mother Laryngeal cancer Osteoarthritis Father Heart disease Myocardial infarction Aunt Diabetes Lung cancer Uncle Diabetes Grandmother CVA (cerebral vascular accident) Diabetes Family History: Reports: - - father had mi at age 39 Maternal Family History: Family History (Last Reviewed 04/14/20 @ 10:22 by Gwendolyn Diamond) Brother Diabetes CAD (coronary artery disease) Heart disease Hypertension High cholesterol Mother Laryngeal cancer Osteoarthritis Father Heart disease Myocardial infarction Aunt Diabetes Lung cancer Uncle Diabetes Grandmother CVA (cerebral vascular accident) Diabetes Family History: Reports: - - mother with throat cancer Sibling Family History: Family History (Last Reviewed 04/14/20 @ 10:22 by Gwendolyn Diamond) Brother Diabetes CAD (coronary artery disease) Heart disease Hypertension High cholesterol Mother Laryngeal cancer Osteoarthritis Father Heart disease Myocardial infarction Aunt Diabetes Lung cancer Uncle Diabetes Grandmother CVA (cerebral vascular accident) Diabetes Family History: Reports: - - sister with multiple sclerosis Review of Systems General: Denies: Chills, Fever, Sweats Eyes: Reports: Visual changes - left ENT: Denies: Rhinorrhea, Sore throat Cardiovascular: Denies: Chest pain, Palpitations Respiratory: Denies: Dyspnea, Cough, Dyspnea on exertion Gastrointestinal: Reports: Abdominal pain, Nausea. Denies: Vomiting, Diarrhea, Constipation Genitourinary: Denies: Dysuria, Hematuria Musculoskeletal: Denies: Myalgias, Arthralgias Skin: Denies: Rash, Abscess Neurological: Denies: Headache Psych: Denies: Depression, Anxiety Physical Exam Vital Signs/Narrative: Vital Signs Temp Pulse Resp BP Pulse Ox 05/10/20 03:41 97.9 F 77 16 153/70 H 98 General: Obese, No Acute Distress Head: Normocephalic, Atraumatic Eyes: Perrl, EOMI. Negative for: Scleral icterus ENT: Moist mucous membranes, No rhinorrhea Cardiovascular: Regular rate, Regular rhythm Respiratory: No distress, CTA bilaterally Abdomen: Soft, Tender - Generalized abdominal tenderness, Hypoactive bowel sounds. Negative for: Pulsatile mass Extremities: Nontender, No edema Skin: Normal color, No rash Neurological: Alert, Oriented x3 Psychological: Normal affect, Normal Mood Diagnostic/Tx/Re-eval Clinical Impression(s) from Imaging Studies Abdomen/Pelvis CT 05/10/20 03:51 IMPRESSION: Enteritis involving loops of proximal and mid jejunum. Colitis involving the right colon. Terminal ileum appears normal. The enteritis or colitis described above are most likely secondary to infection or inflammatory bowel disease. Status post cholecystectomy, splenectomy and partial resection of the tail of pancreas. Bilateral renal cysts which require no further evaluation. Free fluid in the cul-de-sac, or more likely a simple ovarian cyst compatible with a physiologic cyst. Electronically Signed: Ulisses Holliday MD at 5:18 EDT , Service support , Laboratory Data 05/10/20 05/10/20 03:55 03:55 WBC 14.7 H RBC 2.93 L Hgb 12.0 Hct 35.2 L MCV 120.1 H MCH 41.0 H MCHC 34.1 RDW Std Deviation 65.1 H RDW Coeff of Sravanthi 14.6 Plt Count 47 L* MPV 12.0 Immature Gran % (Auto) 0.400 Neut % (Auto) 62.0 Lymph % (Auto) 26.5 Wallace % (Auto) 8.9 Eos % (Auto) 1.9 Baso % (Auto) 0.3 Absolute Neuts (auto) 9.1 H Absolute Lymphs (auto) 3.88 Nucleated RBC % 0 Differential Comment SCANNED Diff Path Review May foll Platelet Estimate MKD DEC Polychromasia RARE Anisocytosis 2+ Macrocytosis 2+ Schistocytes RARE Sodium 137 Potassium 3.6 Chloride 103 Carbon Dioxide 27.0 Anion Gap 7 BUN 15 Creatinine 1.24 H Estim Creat Clear Calc 46.29 Est GFR (MDRD) Af Amer 57 L Est GFR (MDRD) Non-Af 47 L BUN/Creatinine Ratio 12.1 Glucose 144 H Calcium 8.9 Total Bilirubin 0.40 AST 13 L ALT 22 Alkaline Phosphatase 87 Total Protein 8.0 Albumin 3.9 Globulin 4.1 Albumin/Globulin Ratio 1.0 Lipase 122 - Medical Decision Making Patient presents with abdominal pain which started last evening. She is unsure of the source as to whether it was something she ate, but she was concerned she might have diverticulitis or a bowel obstruction again. Her lab work does show a slight leukocytosis however her other labs are normal with exception of chronically low platelets. Her platelets are actually slightly higher than they were at previous check by her heme oncologist. Previous plan last month was to have a 3-month follow-up. Given that her platelets are stable I do not think she needs to stay in the hospital for this. CT abdomen pelvis as documented above shows some concern for enteritis and colitis with infectious versus inflammatory nature. Patient has no history of inflammatory bowel disease such as Crohn's or UC. His pain is currently controlled. Her nausea is improved. Discussed the patient's findings with her and she feels comfortable going home. She was given a prescription for Cipro and Flagyl as well as Phenergan for home. She is given strict return precautions. Patient stable for discharge. Impression: 1. Colitis 2. Enteritis 3. Leukocytosis 4. Thrombocytopenia with a history of chronic ITP ED Disposition - Plan for ED Patient: Disposition: Home or Assisted Living Instructions: ED Gastroenteritis Bacterial, ED Gastroenteritis Noninfectious Prescriptions: Ciprofloxacin [Cipro] 500 mg PO BID #20 tab Transmission Status: Pending to [facility]/pharmacy #[id number] Metronidazole [Flagyl] 500 mg PO Q8 10 Days #20 tab Transmission Status: Pending to [facility]/pharmacy #[id number] proMETHazine tablet [Phenergan] 25 mg PO Q6H PRN PRN #14 tab PRN Reason: Nausea Transmission Status: Pending to [facility]pharmacy #[id number] Referrals: Jaspreet Ball DO [Primary Care Provider] -
--- NOTE | 2020-05-10 03:51 | CT_ITS ---
STUDY: CT ABDOMEN AND PELVIS WITH CONTRAST REASON FOR EXAM: Female, 59 years old. Abdominal and back pain. History of partial colectomy. Partial pancreatic resection. RADIATION DOSAGE (If Supplied By Facility): CTDIvol = ( 18.70 ) mGy, DLP = ( 1412.04 ) mGycm TECHNIQUE: Transaxial images were obtained from the dome of the diaphragm to the symphysis pubis without oral contrast. IV 100mL Isovue-300 was administered. Sagittal and coronal images were reconstructed. Individualized dose optimization techniques were used for this CT. COMPARISON: December 19, 2015. FINDINGS: The visualized lung bases are unremarkable. The visualized portions of the heart are within normal limits. Normal liver. There are surgical clips in the gallbladder fossa consistent with a prior cholecystectomy. Spleen absent compatible with splenectomy. Partial resection tail of pancreas. Normal bilateral adrenal glands. Simple bilateral renal cysts. Normal visualized stomach. Mild bowel wall thickening mild wall thickening and adjacent.inflammatory changes involving loops of bowel in the left abdomen as well as the mid pelvis axial images 77 through 106 series 2 . In particular axial image 69 and 103. Scattered colonic diverticulosis. Mild wall thickening involving the right-side of the colon. Appendix is probably seen in the right hemipelvis and appears normal. Normal abdominal aorta. Normal inferior vena cava. Normal retroperitoneum. No intra-abdominal free air. Normal urinary bladder. Uterus grossly normal. No adnexal mass is seen. Small amount of free fluid in the right posterior cul-de-sac versus a 3.5 x 2.5 cm ovarian cyst. Ventral hernia containing fat. L5-S1 disc space narrowing, vacuum disc and endplate sclerosis. CT/Abdomen/Pelvis W IV Cont ONLY IMPRESSION: Enteritis involving loops of proximal and mid jejunum. Colitis involving the right colon. Terminal ileum appears normal. The enteritis or colitis described above are most likely secondary to infection or inflammatory bowel disease. Status post cholecystectomy, splenectomy and partial resection of the tail of pancreas. Bilateral renal cysts which require no further evaluation. Free fluid in the cul-de-sac, or more likely a simple ovarian cyst compatible with a physiologic cyst. Electronically Signed: Ulisses Holliday MD at 5:18 EDT , Service support ,
[2020-05-10] MEDS: 0.9% Normal Saline 1,000 ML 1000 ML IV (03:58)
[2020-05-10] MEDS: Ondansetron 4 MG/2 ML Vial IV (03:59)
[2020-05-10 04:00] VITALS: BP 120/70; PULSE 73; RESP 24; O2SAT 95
[2020-05-10] MEDS: Morphine 4 MG/ML Syringe IV (04:00)
[2020-05-10 04:03] LABS: Absolute Lymphocyte Count 3.88 X10^3/uL (0.83-4.51); Absolute Neutrophil Count 9.1 X10^3/uL (2.0-7.7); Basophil# 0.04 X10^3/uL; Basophil% 0.3 % (0-1); Eosinophil# 0.28 X10^3/uL; Eosinophils% 1.9 % (0-5); Hematocrit 35.2 % (37-47); Lymphocyte # 3.88 X10^3/ul (4.0); Lymphocyte % 26.5 % (19-41); Mean Corp Hgb Conc 34.1 g/dL (32-36); Mean Corpuscular Volume 120.1 fL (81-99); Monocyte# 1.31 X10^3/uL; Monocyte% 8.9 % (0-10); NRBC Flagged by Analyzer 0 % (0-5); Neutrophil # 9.09 X10^3/uL (2.7-7.7); POSITIVE COUNT YES; POSITIVE MORPHOLOGY YES; RBC Distribution Width CV 14.6 % (11.6-14.6); RBC Distribution Width SD 65.1 fl (35.1-43.9); Red Blood Count 2.93 M/mm3 (4.2-5.4); White Blood Count 14.7 K/mm3 (4.4-11.0)
[2020-05-10 04:08] LABS: Differential Indicated SCAN CRITERIA MET
[2020-05-10 04:10] LABS: Platelet Count 47 K/mm3 (150-450)
[2020-05-10 04:14] LABS: AST(SGOT) 13 U/L (15-37); Alanine Aminotransfer ALT/SGPT 22 U/L (13-56); Albumin, Serum 3.9 g/dL (3.2-5.0); Alkaline Phosphatase 87 U/L (45-117); Anion Gap 7 (5-15); BUN 15 mg/dL (7-18); BUN/Creat Ratio 12.1 RATIO (10-20); Calcium,Total 8.9 mg/dL (8.5-10.1); Chloride 103 mmol/L (98-107); Creatinine, Serum 1.24 mg/dL (0.55-1.02); EST Glomerular Filtration Rate 47 mL/min (>60); Est Glom Filt Rate - Afr Amer 57 mL/min (>60); Estimated Creatinine Clearance 46.29 ml/min; Globulin 4.1 g/dL (2.2-4.2); Glucose 144 mg/dL (74-106); Lipase 122 U/L (73-393); Potassium 3.6 mmol/L (3.5-5.1); Sodium Level 137 mmol/L (136-145)
[2020-05-10 04:20] VITALS: BP 73/36; PULSE 81; RESP 24; O2SAT 98
[2020-05-10 04:25] VITALS: BP 113/78; PULSE 71; RESP 22; O2SAT 97
[2020-05-10] MEDS: proMETHazine 25 MG/ML Syringe 12.5 MG IV (04:25)
[2020-05-10 04:26] LABS: Differential Comment SCANNED; Platelet Estimate MKD DEC (ADEQ)
[2020-05-10 04:27] LABS: Macrocytosis 2+; Polychromasia RARE
[2020-05-10 04:29] LABS: Anisocytosis 2+; Schistocytes RARE
--- NOTE | 2020-05-10 04:34 | ED.RN ---
THIS NURSE IN THE ROOM TO CHECK ON PT D/T LOW BP READING. PT VERY PALE AND NAUSEATED.
[2020-05-10 05:43] VITALS: BP 126/78; PULSE 71; RESP 18; O2SAT 97
[2020-05-10 13:04] LABS: Pathologist Review Reviewed
== END 2020-05-10 05:50 | disposition home or self-care (01) ==
PROVIDERS: Emergency Provider Student in an Organized Health Care Education/Training Program; PCP Family Medicine
DX: K52.9 Noninfective gastroenteritis and colitis, unspecified (principal); D69.3 Immune thrombocytopenic purpura; E78.5 Hyperlipidemia, unspecified; I25.10 Atherosclerotic heart disease of native coronary artery without angina pectoris; F41.9 Anxiety disorder, unspecified; F17.200 Nicotine dependence, unspecified, uncomplicated; E66.9 Obesity, unspecified; Z79.899 Other long term (current) drug therapy
CPT/HCPCS: 74177; 80053; 83690; 85025; 96361; 96374; 96375; 99284; J7030; Q9967; A4216; J2405

== ENCOUNTER → 2023-06-06 | Outpatient (CLI) | payer MEDICARE, MEDICAID, SELFPAY ==
[2023-06-06 10:01] LABS: Absolute Lymphocyte Count 4.32 X10^3/uL (0.83-4.51); Absolute Neutrophil Count 6.9 X10^3/uL (2.0-7.7); Basophil# 0.07 X10^3/uL; Basophil% 0.5 % (0-1); Eosinophil# 0.26 X10^3/uL; Hematocrit 45.8 % (37-47); Hemoglobin 14.8 g/dL (12.0-15.0); Lymphocyte # 4.32 X10^3/ul (0.83-4.51); Lymphocyte % 33.2 % (19-41); Mean Corp Hgb Conc 32.3 g/dL (32-36); Mean Corpuscular Hgb 33.3 pg (27.0-32.0); Mean Corpuscular Volume 103.2 fL (81-99); Mean Platelet Vol. 9.7 fl (6.2-12.0); Monocyte# 1.39 X10^3/uL; Monocyte% 10.7 % (0-10); NRBC Flagged by Analyzer 0.2 % (0-5); Neutrophil # 6.89 X10^3/uL (2.7-7.7); Neutrophil % 53.1 % (47-70); Platelet Count 387 K/mm3 (150-450); RBC Distribution Width CV 14.9 % (11.6-14.6); RBC Distribution Width SD 56.5 fl (35.1-43.9); Red Blood Count 4.44 M/mm3 (4.2-5.4)
[2023-06-06 10:35] LABS: ALB/GLOB Ratio 0.8 RATIO (0.9-2.4); AST(SGOT) 25 U/L (15-37); Alanine Aminotransfer ALT/SGPT 41 U/L (13-56); Albumin, Serum 3.7 g/dL (3.2-5.0); Alkaline Phosphatase 80 U/L (45-117); Anion Gap 3 (5-15); BUN 18 mg/dL (7-18); Calcium,Total 9.2 mg/dL (8.5-10.1); Chloride 109 mmol/L (98-107); Cholesterol 190 mg/dL (200); Creatinine, Serum 1.29 mg/dL (0.55-1.02); EST Glomerular Filtration Rate 45 mL/min (>60); Est Glom Filt Rate - Afr Amer 54 mL/min (>60); Globulin 4.4 g/dL (2.2-4.2); Glucose 162 mg/dL (74-106); High Density Lipoprotein 39 mg/dL; Protein, Total 8.1 g/dL (6.4-8.2); Sodium Level 139 mmol/L (136-145); Triglycerides 478 mg/dL
== END | disposition home or self-care (01) ==
LOC: LAB 08:58
PROVIDERS: PCP Family Medicine; Referring Provider Nurse Practitioner Family; Visit Provider Nurse Practitioner Family
DX: I10 Essential (primary) hypertension (principal); E78.5 Hyperlipidemia, unspecified
CPT/HCPCS: 36415; 80053; 80061; 85025

== ENCOUNTER → 2023-06-14 | Outpatient (CLI) | payer MEDICARE, MEDICAID, SELFPAY ==
--- NOTE | 2023-06-14 13:09 | BI_ITS ---
MAMMOGRAPHY - BILATERAL SCREENING REASON FOR EXAM: Female, 62 years old. Routine annual screening examination. PERTINENT HISTORY: Non-contributory. TECHNIQUE: Digital bilateral breast xin (3D mammographic acquisition) in the CC and MLO projections. 2-D mediolateral oblique (MLO) and craniocaudad (CC) views of both breasts were obtained. CAD: Full Field Digital Mammography with Computer Added Detection was performed. COMPARISON: No comparison mammograms available at this time. If any prior films become available, an addendum to this report can be generated. FINDINGS: Breast Composition: There are scattered areas of fibroglandular density. There are no dominant masses or suspicious calcifications. Benign-appearing bilateral axillary lymph nodes. No other significant abnormalities are identified. BI/SCRN MAMM (CAD)W/XIN BILAT IMPRESSION: Negative screening mammogram. Yearly followup mammogram recommended. (A) ASSESSMENT CATEGORY: BIRADS Category 2: Benign. A letter regarding these results will be sent to the patient by the facility within 30 days. Approximately 10% of breast cancers are not detected by mammography. A normal mammogram should not delay biopsy of a clinically suspicious abnormality. [id number] Electronically Signed: Mike Arango MD at 13:54 EDT ,
--- NOTE | 2023-06-14 13:41 | CT_ITS ---
STUDY: LOW DOSE CT LUNG CANCER SCREENING REASON FOR EXAM: Female, 62 years old. SCREENING FOR LUNG CANCER, SMOKED 1PPD FOR 35 YEARS RADIATION DOSAGE (If Supplied By Facility): CTDIvol = ( 3.18 ) mGy, DLP = ( 96.88 ) mGycm TECHNIQUE: No contrast was administered. Low dose technique was utilized (average mAS-38 and kVp 120). 1.25 mm axial source images with a slice interval of 1.25-mm were reconstructed in lung windows. 2.5 mm axial source images with a slice interval of 2.5-mm were reconstructed in lung windows. 5.0 mm axial source images with a slice interval of 5.0-mm were reconstructed in soft tissue windows. COMPARISON: Comparison is made with prior study dated February 06, 2010. NODULES: No suspicious nodules are seen. Emphysema: Minimal emphysematous changes. Endobronchial lesion: None Aorta: Atherosclerotic plaque formation of the aortic arch. CORONARY ARTERIES: Coronary artery calcification is seen. Heart: Unremarkable Pulmonary artery: Unremarkable Mediastinal nodes: Small mediastinal lymph nodes. Other chest and abdominal findings: Mild degree of degenerative changes of the thoracic vertebrae. CT/Low Dose CT Lung Screening IMPRESSION: Lung-RADS category 2 - Continue annual screening with LDCT in 12 months. IMPORTANT NOTES FOR USE: ACR Lung-RADS Version 1.1 Assessment Categories Release Date: 2018 Category: Coded 0-4 bases on nodule(s) with highest degree of suspicion. Negative screen is defined as categories 1 and 2; a positive screen is defined as categories 3 and 4. Category 3 and 4A nodules that are unchanged on interval CT should be coded as category 2, and individuals returned to screening in 12 months. Category 4X: Category 3 or 4 nodules with additional imaging findings that increase the suspicion of lung cancer, such as spiculation, GGN that doubles in size in 1 year, enlarged lymph notes, etc. Category Modifiers: S (significant finding unrelated to lung cancer) Electronically Signed: Mike Arango MD at 14:28 EDT ,
== END | disposition home or self-care (01) ==
LOC: OPBI 13:08
PROVIDERS: PCP Family Medicine; Referring Provider Nurse Practitioner Family; Visit Provider Nurse Practitioner Family
DX: Z12.31 Encounter for screening mammogram for malignant neoplasm of breast (principal); F17.210 Nicotine dependence, cigarettes, uncomplicated; Z12.2 Encounter for screening for malignant neoplasm of respiratory organs
CPT/HCPCS: 71271; 77063; 77067

== ENCOUNTER 2024-01-28 21:11 | Inpatient (IN) | payer MEDICARE, MEDICAID, SELFPAY ==
[2024-01-28 21:12] VITALS: BP 120/79; PULSE 91; RESP 16; TEMP 35.9; O2SAT 92
[2024-01-28 21:33] LABS: Absolute Lymphocyte Count 4.14 X10^3/uL (0.83-4.51); Absolute Neutrophil Count 15.5 X10^3/uL (2.0-7.7); Basophil# 0.14 X10^3/uL; Basophil% 0.6 % (0-1); Eosinophil# 0.41 X10^3/uL; Eosinophils% 1.8 % (0-5); Hematocrit 51.7 % (37-47); Hemoglobin 17.2 g/dL (12.0-15.0); Lymphocyte # 4.14 X10^3/ul (0.83-4.51); Lymphocyte % 18.5 % (19-41); Mean Corp Hgb Conc 33.3 g/dL (32-36); Mean Corpuscular Hgb 33.5 pg (27.0-32.0); Mean Corpuscular Volume 100.6 fL (81-99); Mean Platelet Vol. 9.4 fl (6.2-12.0); Monocyte# 1.91 X10^3/uL; Monocyte% 8.6 % (0-10); NRBC Flagged by Analyzer 0 % (0-5); Neutrophil # 15.54 X10^3/uL (2.7-7.7); Neutrophil % 69.6 % (47-70); POSITIVE DIFFERENTIAL YES; Platelet Count 434 K/mm3 (150-450); RBC Distribution Width SD 52.7 fl (35.1-43.9); Red Blood Count 5.14 M/mm3 (4.2-5.4); White Blood Count 22.3 K/mm3 (4.4-11.0)
[2024-01-28 21:48] LABS: Differential Indicated SCAN CRITERIA MET
[2024-01-28 21:58] LABS: AST(SGOT) 19 U/L (15-37); Alanine Aminotransfer ALT/SGPT 25 U/L (13-56); Albumin, Serum 4.2 g/dL (3.2-5.0); Alkaline Phosphatase 93 U/L (45-117); Anion Gap 8 (5-15); BUN 21 mg/dL (7-18); BUN/Creat Ratio 14.6 RATIO (10-20); Calcium,Total 10.4 mg/dL (8.5-10.1); Chloride 105 mmol/L (98-107); Creatinine, Serum 1.44 mg/dL (0.55-1.02); EST Glomerular Filtration Rate 39 mL/min (>60); Est Glom Filt Rate - Afr Amer 47 mL/min (>60); Globulin 4.4 g/dL (2.2-4.2); Glucose 136 mg/dL (74-106); Protein, Total 8.6 g/dL (6.4-8.2); Sodium Level 137 mmol/L (136-145)
[2024-01-28 22:13] LABS: Differential Comment SCANNED
[2024-01-28 22:40] LABS: Mucous, Urine 0 SEEN /hpf (<or=2+); Red Blood Cells-Urine 0 SEEN /hpf (0-5)
[2024-01-28 22:41] LABS: Color, Urine Yellow (Yellow); Glucose, Dipstick Normal (Normal); Ketone-Dipstick 5 mg/dl (Negative); Leukocyte Esterase-Dipstick 100 /ul (Negative); Nitrite-Dipstick Negative (Negative); Occult Blood-Urine 10 /ul (Negative); Protein-Dipstick 30 mg/dl (Negative); Specific Gravity, Urine 1.025 (1.002-1.030); Urine Clarity Sl. Cloudy (Clear); Urine Urobilinogen 4 mg/dl (Normal)
[2024-01-28 22:42] LABS: Urine Bilirubin Dipstick 1 mg/dL (Negative)
[2024-01-28 22:47] LABS: Calcium Oxalate Crystals Ur 2+ /hpf (<or=2+); Squamous Epithelial Cells - UA 10-25 SEEN /hpf (5-10)
[2024-01-28 22:48] LABS: Bacteria 3+ /hpf (None Seen); White Blood Cells 0-5 SEEN /hpf (0-5)
[2024-01-28 23:12] VITALS: BP 110/70; PULSE 82; RESP 16; O2SAT 99; BMI 30.7
--- NOTE | 2024-01-28 23:20 | EDS_ITS ---
HPI HPI - GI History of Present Illness Chief Complaint: Abd Pain Informant: patient Abdominal Pain/Flank Pain Onset: Today Context: Gradual Onset Timing: Continuous Quality: Aching Location: - (left side mostly, but radiated across mid abd earlier) Current Severity: Moderate Maximum Severity: Moderate Worsened by: Nothing Relieved by: Nothing Nausea/Vomiting/Emesis GI Symptom: Positive for Nausea and Vomiting Onset: Today Quality: Positive for Nonbilious; Negative for Blood streaks Diarrhea/Melena/Hematochezia GI Symptom: Negative for Diarrhea, Melena or Hematochezia Associated Symptoms Associated Symptoms: Negative for Dysuria, Frequency, Hematuria or Urgency Narrative Narrative: Gradual onset abdominal pain, she has had nausea and vomiting with it and after vomiting a little earlier, the pain that was across her abdomen improved and now it is situated mostly in the left side worse lower than upper. Radiates into her back a little at times but for the most part not hurting there. PFSH PFSH Medical History Essential hypertension Diverticulitis large intestine Arthritis Current smoker Cocaine abuse Obesity Chronic kidney disease, stage 3 BENIGN PANCREATIC MASS GERD (gastroesophageal reflux disease) Depression Hyperlipidemia Anxiety Nicotine addiction Dyslipidemia Back pain Fatigue CAD (coronary artery disease) Chest pain Home Medications ?Medication ?Instructions ?Recorded ?Last Taken ?Type famotidine 20 mg tablet 20 mg PO BID #28 tabs 12/18/15 02/21/20 Rx lisinopril 10 mg tablet 10 mg PO QDAY 12/04/17 02/21/20 History venlafaxine 75 mg capsule,extended 150 mg PO QDAY 12/04/17 02/21/20 History release 24 hr (Effexor XR) metformin 500 mg tablet 500 mg PO BID 01/28/24 Unknown History tirzepatide 5 mg/0.5 mL 5 mg subcut Q7D 01/28/24 01/23/24 History subcutaneous pen injector (Mounjaro) Allergy/AdvReac Type Severity Reaction Status Date / Time aspirin AdvReac Severe Nausea Verified 01/28/24 21:14 Family History Brother Diabetes CAD (coronary artery disease) stents Heart disease Hypertension High cholesterol Mother Laryngeal cancer diagnosed in her 30's Osteoarthritis Father Heart disease Myocardial infarction age 39 Aunt Diabetes maternal aunts, age 60's Lung cancer age 61 Uncle Diabetes Grandmother CVA (cerebral vascular accident) maternal Diabetes Surgical History History of appendectomy History of resection of pancreas Hx of tonsillectomy S/P laparoscopy H/O splenectomy H/O: S/P laparoscopic cholecystectomy S/P partial colectomy Social History Smoking Status: Heavy Smoker (>10/day) alcohol intake: never ROS ROS ED Constitutional Constitutional ED: Denies chills or fever(s) Eyes Eyes: Denies change in vision or diplopia ENT ENT ED: Denies rhinorrhea or sore throat Cardiovascular Cardiovascular: Denies chest pain or palpitations Respiratory/Chest Respiratory/Chest: Denies cough or dyspnea Gastrointestinal Gastrointestinal: Reports abdominal pain, nausea and vomiting; Denies diarrhea Genitourinary Genitourinary ED: Denies dysuria or hematuria Musculoskeletal Musculoskeletal: Reports back pain; Denies neck pain Integumentary Denies abscess or rash Neurologic Neurologic: Denies headache(s), paresthesias or weakness Psychiatric Psychiatric: Denies suicidal thoughts EXAM Physical Exam Const Vital Signs: 01/28/24 21:12 01/28/24 23:12 01/28/24 23:32 Temperature 96.6 F L Temperature Source Temporal Pulse Rate 91 82 89 Respiratory Rate 16 16 14 Blood Pressure 120/79 110/70 116/78 Blood Pressure Mean 92 83 90 Pulse Ox 92 99 99 Oxygen Delivery Method Room Air Room Air Room Air 01/29/24 01:00 01/29/24 03:00 Temperature Temperature Source Pulse Rate 92 87 Respiratory Rate 18 18 Blood Pressure 145/59 H 105/87 H Blood Pressure Mean 87 93 Pulse Ox 97 95 Oxygen Delivery Method Room Air Room Air Positive well nourished and well developed General Appearance ED: well developed and NAD HEENT Reports moist mucous membranes normocephalic and atraumatic Eyes PERRL and EOMs intact bilaterally Neck full ROM and supple Resp normal respiratory effort and clear to auscultation bilaterally Cardio regular rate, regular rhythm and no murmurs GI non-distended GI Narrative: Very tender in the left lower quadrant, less tender left mid abdomen and suprapubic areas. There is some mild remote rebound tenderness. No guarding. Auscultation: normoactive bowel sounds Palpation: soft Back/Spine no CVA tenderness General Back: other FROM Extremity normal to inspection General Extremety ED: Negative for edema, pulses abnormal or tenderness General Extremity: Negative for edema or pulses abnormal Neuro oriented x3, CN's II-XII intact bilaterally and no sensory deficits noted Sensorium / Orientation: awake and alert Motor Exam: strength 5/5 throughout Skin no rashes or lesions noted and no wounds MDM MDM MDM Narrative Medical decision making narrative: Patient has significant leukocytosis. With her history, my concern would be primarily for diverticulitis, so CT warranted. The rest of the labs are noted, urine as well which does not show signs of acute infection. However, does show calcium oxalate crystals, and ureterolithiasis is also in the differential here. Radiology called me about the CT results, I reviewed the images and the result which I agree with, basically shows a bowel obstruction small bowel, with transition in the left lower quadrant and no other acute inflammatory process although there is mild diffuse small bowel and colonic mucosal wall thickening of undetermined significance. No acute infectious process or abscess/fluid collection. Patient required multiple doses of analgesics, and given the vomiting she was having, discussed with surgery who agrees with placing an NG tube. Will admit to medicine. Nursing attempted multiple times to place an NG tube without success. 3 different single view KUB's were obtained and all interpreted by myself as incomplete passage of the NG, the tip ended up in the esophagus or at the GE junction each time. I presume that the tube was caught up in the patient's throat and she felt like it was as well, since almost the entire tube had been inserted into her nose. I discussed with surgery who advised either fixing it or withdrawing the tube before sending her up. I personally attempted to pass the NG. With x-ray at the bedside, I pulled the slack out of the tube, until the patient felt like the coiled section was out of her throat. I then obtained a stat portable soft tissue neck AP 1 view, which on my interpretation showed a persistent coil. Therefore I withdrew more of the tube and obtained another stat portable AP soft tissue neck, which on my interpretation shows resolution of the coil. The patient said it felt much better. Before this procedure, I anesthetized both nostrils with 2 cc of 2% lidocaine jelly on either side, she was able to inhale this back and swallow it without any difficulty or aspiration and it really helped her discomfort. Having the patient swallow sips of water, attempted multiple times to pass the NG tube but it continued to get hung up and then proceeded to coil in the back of her throat which we were able to recognize clinically and resolved but after 3 or 4 attempts by myself I was not able to get the tube to pass even to the GE junction. At this point I obtained a chest x-ray to see how far it had gone and on my interpretation 1 view AP portable showing indeed the tip is not yet to the GE junction. Therefore at this point we withdrew the NG tube and aborted. She was given more pain medication before giving soapsuds enema that surgery requested to decompress the colon. Patient is amenable. She states she has had dysphagia in the past, the last time she had it was about a month ago but she has been able to pass things without difficulty since. CT did show hiatal hernia. Lab Data Attestation: I reviewed the patient's lab results. Labs: Laboratory Results - last 24 hr 01/28/24 01/28/24 01/29/24 18:54 21:25 02:54 WBC 22.3 H RBC 5.14 Hgb 17.2 H Hct 51.7 H MCV 100.6 H MCH 33.5 H MCHC 33.3 RDW Std Deviation 52.7 H RDW Coeff of Sravanthi 14.0 Plt Count 434 MPV 9.4 Immature Gran % (Auto) 0.900 Neut % (Auto) 69.6 Lymph % (Auto) 18.5 L [place] % (Auto) 8.6 Eos % (Auto) 1.8 Baso % (Auto) 0.6 Absolute Neuts (auto) 15.5 H Absolute Lymphs (auto) 4.14 Nucleated RBC % 0 Differential Comment SCANNED Diff Path Review May foll Sodium 137 Potassium 4.0 Chloride 105 Carbon Dioxide 24.0 Anion Gap 8 BUN 21 H Creatinine 1.44 H Est GFR (MDRD) Af Amer 47 L Est GFR (MDRD) Non-Af 39 L BUN/Creatinine Ratio 14.6 Glucose 136 H Calcium 10.4 H Total Bilirubin 0.30 AST 19 ALT 25 Alkaline Phosphatase 93 Total Protein 8.6 H Albumin 4.2 Globulin 4.4 H Albumin/Globulin Ratio 1.0 Urine Color Yellow Yellow Urine Clarity Sl. Cloudy Clear Urine pH 5.0 5.0 Ur Specific [place] 1.025 1.015 Urine Protein 30 H 30 H Urine Glucose (UA) Normal Normal Urine Ketones 5 H Negative Urine Occult Blood 10 H 10 H Urine Nitrite Negative Negative Urine Bilirubin 1 H Negative Urine Urobilinogen 4 H 1 H Ur Leukocyte Esterase 100 H 25 H Urine RBC 0 SEEN 0 SEEN Urine WBC 0-5 SEEN 0 SEEN Ur Squamous Epith Cells 10-25 SEEN 5-10 SEEN Calcium Oxalate Crystal 2+ Urine Bacteria 3+ 0 SEEN Urine Mucus 0 SEEN 0 SEEN Radiography Diagnostic Testing: Clinical Impression(s) from Imaging Studies KUB X-Ray 01/29/24 02:08 IMPRESSION: The enteric tube tip is in the distal esophagus near the GE junction. Consider advancing the tube at least 15 cm to ensure side port placement in the stomach. Electronically Signed: Becky Garcia MD at 4:46 EDT Reading Location ID and State: [facility] / [place] Tel , Service support , ADDENDUM: 01/29/24 [id number] IMPRESSION: The enteric tube tip is in the distal esophagus near the GE junction. Consider advancing the tube at least 15 cm to ensure side port placement in the stomach. N.B. : Alvin Gamboa MD, confirmed on 01/29/2024 04:51:04 (ET) that the healthcare facility has received the radiology report. Electronically Signed: Becky Garcia MD at 4:46 EDT Reading Location ID and State: [facility] / [place] Tel , Service support , KUB X-Ray 01/29/24 03:07 IMPRESSION: 1. Enteric tube tip appears to be in the distal esophagus. 2. Small hiatal hernia is present on review of the prior CT. Electronically Signed: Becky Garcia MD at 4:48 EDT , KUB X-Ray 01/29/24 03:27 IMPRESSION: Enteric tube tip apparently in the distal esophagus. Electronically Signed: Becky Garcia MD at 4:49 EDT , Management Discussion w/another healthcare provider: Hospitalist, [facility] (Dr. Livingston surgery) and Radiologist Procedures Other Procedures Procedure(s): Unsuccessful attempts at passing NGT by ED physician see above for details. Patient tolerated well. No complications other than unable to pass tube. Discharge Plan Dx/Rx/DC Orders Clinical Impression: Complete small bowel obstruction, Acute renal insufficiency, Hernia, hiatal Disposition Disposition: Acute Care Hospital [facility]
[2024-01-28 23:32] VITALS: BP 116/78; PULSE 89; RESP 14; O2SAT 99
[2024-01-28] MEDS: Ondansetron 4 MG/2 ML Vial IV (23:36)
[2024-01-28] MEDS: Morphine 4 MG/ML Syringe IV (23:36)
[2024-01-29] VITALS (10 sets, daily range): BP systolic 91–145; BP diastolic 56–87; PULSE 60–92; RESP 13–35; TEMP 36.4–37.1; O2SAT 85–97; BMI 30.7
[2024-01-29] MEDS: Morphine 4 MG/ML Syringe IV ×2 (01:08→02:24)
--- NOTE | 2024-01-29 02:08 | RAD_ITS ---
EXAM: XR ABDOMEN, 1 VIEW CLINICAL INDICATION: NG Insertion TECHNIQUE: Frontal supine view of the abdomen/pelvis. COMPARISON: No relevant prior studies available. FINDINGS: LOWER THORAX: Band of suspected discoid atelectasis in the right lung base adjacent to mildly elevated right hemidiaphragm. GASTROINTESTINAL TRACT: The pelvis is not included. Mild gas in the transverse colon and splenic flexure. Non-obstructive. No bowel or stomach distention. ORGANS: Cholecystectomy clips. No organomegaly. No abnormal calcifications. BONES/JOINTS: No acute pathology. SOFT TISSUES: No acute pathology. TUBES, LINES AND DEVICES: Enteric tube tip slightly superior to the level of the medial left hemidiaphragm, apparently in the distal esophagus, consider advancing it at least 15 cm to ensure side port placement in the stomach. OTHER FINDINGS: Surgical changes in the left upper quadrant. RAD/Abdomen Single View (Portable) IMPRESSION: The enteric tube tip is in the distal esophagus near the GE junction. Consider advancing the tube at least 15 cm to ensure side port placement in the stomach. Electronically Signed: Becky Garcia MD at 4:46 EDT ,
[2024-01-29] MEDS: Oxymetazoline 0.05% 1 SPRAY SPRAY.BTL 2 SPRAY NASAL (02:31)
[2024-01-29 02:56] LABS: Bacteria 0 SEEN /hpf (None Seen); Mucous, Urine 0 SEEN /hpf (<or=2+); Red Blood Cells-Urine 0 SEEN /hpf (0-5); White Blood Cells 0 SEEN /hpf (0-5)
[2024-01-29 02:58] LABS: Color, Urine Yellow (Yellow); Glucose, Dipstick Normal (Normal); Ketone-Dipstick Negative (Negative); Leukocyte Esterase-Dipstick 25 /ul (Negative); Nitrite-Dipstick Negative (Negative); Occult Blood-Urine 10 /ul (Negative); Protein-Dipstick 30 mg/dl (Negative); Specific Gravity, Urine 1.015 (1.002-1.030); Urine Bilirubin Dipstick Negative (Negative); Urine Clarity Clear (Clear); Urine Urobilinogen 1 mg/dl (Normal)
--- NOTE | 2024-01-29 03:02 | HP.PCM.HOS_ITS ---
[facility] - General General Date of Admission: 01/29/24 Date of Service: 01/29/24 Chief Complaint: Abdominal Pain, Nausea and Vomiting. HPI Narrative ART NOVAK, is a 63 F with a past medical history of essential hypertension, history of tobacco abuse; ~1 ppd x ~35 years, obesity; with a BMI of 30.7 this admission, DM-2; of unknown control on metformin, CAD, chronic ITP, history of macrocytosis without anemia, CKD; stage III, history of diverticulitis, history of cocaine abuse (allegedly quit 2018), depression with anxiety, GERD, osteoarthritis; with chronic back pain and history of multiple abdominal surgeries including colon partial pancreatectomy; for benign pancreatic mass, history of splenectomy, history of laparoscopic cholecystectomy, history of partial colectomy; due to diverticulitis, history of appendectomy, history of small bowel obstruction; requiring surgery who presents to [facility] ER complaining of abdominal pain, nausea and vomiting. Ms. Novak reports her symptoms began earlier today with a gradual onset of abdominal pain that was aching, moderate, mainly left-sided radiating across her mid abdomen and into her back, continuous and with nothing making the pain better or worse. She then developed nausea followed by bilious emesis but she denies associated fever, chills, dysuria, urinary frequency or hematuria. In the ER she was noted to have CT evidence of multiple thick-walled and mildly edematous appearing collapsed small bowel loops in the Left lower quadrant with dilatation of more proximal mid small bowel loops with suspected mechanical obstruction SBO versus pseudoobstruction due to underlying adhesions complicated by additional CT evidence of enterocolitis and incidentally noted multiple bilateral renal cysts apparently new since 2013 with leukocytosis of 22.3 K present on admission and urinalysis suggestive of colonization and not acute infection at this time with NG tube placed in the ER and she was then admitted to the general medical floor for ongoing care for stay that is expected to extend beyond 2 midnights. COUNT INCLUDES THE [facility] Medical History Essential hypertension Diverticulitis large intestine Arthritis Current smoker Cocaine abuse Obesity Chronic kidney disease, stage 3 BENIGN PANCREATIC MASS GERD (gastroesophageal reflux disease) Depression Hyperlipidemia Anxiety Nicotine addiction Dyslipidemia Back pain Fatigue CAD (coronary artery disease) Chest pain Home Medications ?Medication ?Instructions ?Recorded ?Last Taken ?Type famotidine 20 mg tablet 20 mg PO BID #28 tabs 12/17/02/21/20 Rx lisinopril 10 mg tablet 10 mg PO QDAY 12/04/17 02/21/20 History metformin 500 mg tablet 500 mg PO BID 01/28/24 Unknown History tirzepatide 5 mg/0.5 mL 5 mg subcut Q7D 01/28/24 01/23/24 History subcutaneous pen injector (Mounjaro) duloxetine 30 mg capsule,delayed 30 mg PO DAILY depression 01/29/24 Unknown History release Allergy/AdvReac Type Severity Reaction Status Date / Time aspirin AdvReac Severe Nausea Verified 01/28/24 21:14 Family History Brother Diabetes CAD (coronary artery disease) stents Heart disease Hypertension High cholesterol Mother Laryngeal cancer diagnosed in her 30's Osteoarthritis Father Heart disease Myocardial infarction age 39 Aunt Diabetes maternal aunts, age 60's Lung cancer age 61 Uncle Diabetes Grandmother CVA (cerebral vascular accident) maternal Diabetes Surgical History History of appendectomy History of resection of pancreas Hx of tonsillectomy S/P laparoscopy H/O splenectomy H/O: S/P laparoscopic cholecystectomy S/P partial colectomy Social History Smoking Status: Heavy Smoker (>10/day) alcohol intake: never ROS ROS Narrative Review of systems: General: Patient denies fever or chills. HENT: Denies headache, denies stuffy nose, denies sore throat EYES: Denies changes in vision or discharge from eyes. Resp: Denies cough, denies shortness of breath Cardiac: Denies chest pain, palpitations or heart racing. GI: Patient admits to taking abdominal pain followed by nausea and vomiting as per HPI. : Denies changes in urination Extremity: Denies swelling Musculoskeletal: Feels somewhat generally weak and unwell with the back pain but she denies arthralgias Neuro: Patient denies headache, paresthesias or focal neurologic deficits. Heme: Denies any bleeding or bruising Skin: Denies rashes Psychiatric: No complaints voiced related to uncontrolled depression or anxiety. Endocrine: No polyuria, polydipsia or polyphagia. The rest of the 14 point ROS was negative except for positives in HPI. Vital Signs Vital Signs Vital Signs: 01/28/24 21:12 01/28/24 23:12 01/28/24 23:32 Temperature 96.6 F L Temperature Source Temporal Pulse Rate 91 82 89 Respiratory Rate 16 16 14 Blood Pressure 120/79 110/70 116/78 Blood Pressure Mean 92 83 90 Pulse Ox 92 99 99 Oxygen Delivery Method Room Air Room Air Room Air 01/29/24 01:00 Temperature Temperature Source Pulse Rate 92 Respiratory Rate 18 Blood Pressure 145/59 H Blood Pressure Mean 87 Pulse Ox 97 Oxygen Delivery Method Room Air Weight Weight: 190 lb Body Mass Index (BMI) 30.7 Physical Exam Const alert and oriented x3 Constitutional Narrative: Mild discomfort noted. General Appearance: cooperative HEENT normocephalic, head/scalp atraumatic, hearing grossly normal bilaterally and moist oral mucous membranes Eyes PERRL and EOMs intact bilaterally Neck no lymphadenopathy and supple Resp normal respiratory effort, no retractions, no use of accessory muscles and clear to auscultation bilaterally Cardio regular rate and regular rhythm GI GI Narrative: Patient very tender in the left lower quadrant and left mid abdomen and suprapubic areas. Mild rebound tenderness noted with normoactive bowel sounds. No guarding. Palpation: tender Extremity normal to inspection, full ROM and no clubbing, cyanosis or edema Skin Skin Narrative: Patient has no evidence of jaundice or rash. Neuro oriented x3, CN's II-XII intact bilaterally, moves all extremities and no focal motor deficits Sensorium / Orientation: awake, alert, oriented to person, oriented to place and oriented to time Speech: speech normal Psych affect normal Results Medical Records Data Attestation: I reviewed the patient's medical records Lab / Micro Data Attestation: I reviewed the patient's lab results. 01/28/24 21:25 01/28/24 21:25 Labs: Laboratory Results - last 24 hr 01/28/24 18:54: Urine Color Yellow, Urine Clarity Sl. Cloudy, Urine pH 5.0, Ur Specific King 1.025, Urine Protein 30 H, Urine Glucose (UA) Normal, Urine Ketones 5 H, Urine Occult Blood 10 H, Urine Nitrite Negative, Urine Bilirubin 1 H, Urine Urobilinogen 4 H, Ur Leukocyte Esterase 100 H, Urine RBC 0 SEEN, Urine WBC 0-5 SEEN, Ur Squamous Epith Cells 10-25 SEEN, Calcium Oxalate Crystal 2+, Urine Bacteria 3+, Urine Mucus 0 SEEN 01/28/24 21:25: WBC 22.3 H, RBC 5.14, Hgb 17.2 H, Hct 51.7 H, MCV 100.6 H, MCH 33.5 H, MCHC 33.3, RDW Std Deviation 52.7 H, RDW Coeff of Sravanthi 14.0, Plt Count 434, MPV 9.4, Immature Gran % (Auto) 0.900, Neut % (Auto) 69.6, Lymph % (Auto) 18.5 L, Cowley % (Auto) 8.6, Eos % (Auto) 1.8, Baso % (Auto) 0.6, Absolute Neuts (auto) 15.5 H, Absolute Lymphs (auto) 4.14, Nucleated RBC % 0, Differential Comment SCANNED, Diff Path Review December, Sodium 137, Potassium 4.0, Chloride 105, Carbon Dioxide 24.0, Anion Gap 8, BUN 21 H, Creatinine 1.44 H, Est GFR (MDRD) Af Amer 47 L, Est GFR (MDRD) Non-Af 39 L, BUN/Creatinine Ratio 14.6, G lucose 136 H, Calcium 10.4 H, Total Bilirubin 0.30, AST 19, ALT 25, Alkaline Phosphatase 93, Total Protein 8.6 H, Albumin 4.2, Globulin 4.4 H, Albumin/Globulin Ratio 1.0 Imaging Radiology Impression Abdomen/Pelvis CT 01/29/24 23:19 IMPRESSION: 1. Multiple thick walled and mildly edematous-appearing collapsed small bowel loops in the left lower quadrant and significant discrepancy, dilatation of more proximal mid small bowel loops. Suspected mechanical obstruction versus pseudoobstruction due to underlying adhesions, enteritis or ischemia. Suspected SBO with mild superimposed small bowel edema. 2 major vessels. 2. The colon is not decompressed, there is moderate fluid in most of the colon and mucosal enhancement, suggesting enterocolitis. 3. Moderate diverticulosis of descending and sigmoid colon. No evidence of acute diverticulitis. 4. Appendectomy. 5. Cholecystectomy. Partial pancreatectomy. Splenectomy. Small stable left adrenal nodule, presumed small adenoma. Small stable hiatal hernia. 6. Multiple and bilateral renal cysts with multiple new small cortical cysts since 2013 but no evidence of complex cystic mass. Electronically Signed: Becky Garcia MD at 2:00 EDT , ADDENDUM: 01/29/247 IMPRESSION: 1. Multiple thick walled and mildly edematous-appearing collapsed small bowel loops in the left lower quadrant and significant discrepancy, dilatation of more proximal mid small bowel loops. Suspected mechanical obstruction versus pseudoobstruction due to underlying adhesions, enteritis or ischemia. Suspected SBO with mild superimposed small bowel edema. 2 major vessels. 2. The colon is not decompressed, there is moderate fluid in most of the colon and mucosal enhancement, suggesting enterocolitis. 3. Moderate diverticulosis of descending and sigmoid colon. No evidence of acute diverticulitis. 4. Appendectomy. 5. Cholecystectomy. Partial pancreatectomy. Splenectomy. Small stable left adrenal nodule, presumed small adenoma. Small stable hiatal hernia. 6. Multiple and bilateral renal cysts with multiple new small cortical cysts since 2013 but no evidence of complex cystic mass. N.B. : The above Results were Read Back by Becky Garcia MD to Alvin Gamboa MD, and understanding confirmed on 01/29/2024 02:10:53 (ET). Electronically Signed: Becky Garcia MD at 2:00 EDT , Assessment & Plan Assessment/Plan (1) Complete small bowel obstruction: (2) Intractable nausea and vomiting: (3) History of small bowel obstruction: (4) Tobacco abuse: (5) Chronic ITP (idiopathic thrombocytopenia): (6) Macrocytosis without anemia: PLAN: Plan 1. CT evidence of multiple thick-walled and mildly edematous appearing collapsed small bowel loops in the Left lower quadrant with dilatation of more proximal mid small bowel loops with suspected mechanical obstruction SBO versus pseudoobstruction due to underlying adhesions with intractable nausea vomiting - Admit to general medical floor. Keep NG tube to intermittent wall suction and aggressively volume resuscitate. Give Protonix 40 mg IV daily. Give IV Zofran as needed for breakthrough nausea vomiting. Recheck KUB daily to evaluate for possible improvement. Finally, we will consult general surgeon on-call to see this patient on rounds in the a.m. further recommendations with help appreciated in advance. 2. CT evidence of enterocolitis and incidentally noted multiple bilateral renal cysts apparently new since 2014 with leukocytosis of 22.3 K present on admission complicating #1 - Noted. Patient ordered enema by the general surgeon on-call. If she develops significant diarrhea we will check stool studies and placed on enteric precautions. 3. History of multiple abdominal surgeries including colon partial pancreatectomy; for benign pancreatic mass, history of splenectomy, history of laparoscopic cholecystectomy, history of partial colectomy; due to diverticulitis, history of appendectomy, history of small bowel obstruction; requiring surgery adding to the pathology of #1 & #2 - Noted with significant adhesions suspected from her numerous previous abdominal surgeries. 4. Essential hypertension - Hold scheduled antihypertensives. Give IV hydralazine as needed for systolic blood pressure greater than 160 mmHg. 5. History of tobacco abuse; ~1 ppd x ~35 years - Tobacco cessation will be strongly encouraged with nicotine patch offered to control cravings. 6. Obesity; with a BMI of 30.7 this admission - Weight loss will be recommended. Check TSH. 7. DM-2; of unknown control on metformin - Hold metformin and keep strict n.p.o. for now. Fingerstick blood sugars every 6 hours plus lowest intensity sliding scale insulin. Check hemoglobin A1c to objectively assess quality of diabetic control. 8. CAD - Stable. 9. Chronic ITP - Stable with platelet count of 434 K present on admission. 10. History of macrocytosis without anemia - Stable with MCV of 100.6 fL and hemoglobin of 17.2 g/dL present on admission. 11. CKD; stage III - Stable. 12. History of cocaine abuse (allegedly quit 2018) - Check [place] UDS this admission to ensure continued sobriety. 13. Depression with anxiety - Resume home regimen when patient is able to tolerate oral intake. 14. GERD - Give Protonix 40 mg IV daily. 15. Osteoarthritis; with chronic back pain - Stable. 16. DVT prophylaxis - Heparin 5,000 units sq BID plus SCD's. Total time: Approximately 75 minutes. Charges/Coding Visit Charges Inpatient E&M: 31841 Init Hosp L3
--- NOTE | 2024-01-29 03:07 | RAD_ITS ---
EXAM: XR ABDOMEN, 1 VIEW CLINICAL INDICATION: post NG TECHNIQUE: Frontal supine view of the abdomen/pelvis. COMPARISON: No relevant prior studies available. FINDINGS: LOWER THORAX: See below. GASTROINTESTINAL TRACT: Moderate gas transverse colon. Non-obstructive. No bowel or stomach distention. ORGANS: Cholecystectomy clips. No organomegaly. No abnormal calcifications. BONES/JOINTS: No acute pathology. SOFT TISSUES: Surgical clips in the left upper quadrant. TUBES, LINES AND DEVICES: Enteric tube tip in the distal esophagus slightly superior to the level of the diaphragm. Consider advancing it at least 15 cm for side port placement in the stomach. RAD/Abdomen Single View IMPRESSION: 1. Enteric tube tip appears to be in the distal esophagus. 2. Small hiatal hernia is present on review of the prior CT. Electronically Signed: Becky Garcia MD at 4:48 EDT ,
[2024-01-29] MEDS: Lidocaine Jelly 2% 20 ML Syringe (URO-JET) 1 APPLIC TOPICAL ×2 (03:10→05:19)
[2024-01-29 03:13] LABS: Squamous Epithelial Cells - UA 5-10 SEEN /hpf (5-10)
[2024-01-29] MEDS: HYDROmorphone 1 MG/ML Syringe IV (03:26)
--- NOTE | 2024-01-29 03:27 | RAD_ITS ---
EXAM: XR ABDOMEN, 1 VIEW CLINICAL INDICATION: NG TUBE PLACEMENT TECHNIQUE: Frontal supine view of the abdomen/pelvis. COMPARISON: No relevant prior studies available. FINDINGS: LOWER THORAX: Mild linear atelectasis in the lung bases. GASTROINTESTINAL TRACT: Unremarkable. Non-obstructive. No bowel or stomach distention. ORGANS: Postoperative changes of the upper abdomen and cholecystectomy clips. No organomegaly. No abnormal calcifications. BONES/JOINTS: No acute pathology. SOFT TISSUES: No acute pathology. TUBES, LINES AND DEVICES: Enteric tube tip in the distal esophagus, just superior to the level of the central diaphragm. RAD/Abdomen Single View IMPRESSION: Enteric tube tip apparently in the distal esophagus. Electronically Signed: Becky Garcia MD at 4:49 EDT ,
--- NOTE | 2024-01-29 04:36 | ED.RN ---
0158: 1st attempt at NG tube placement was successful w/ confirmation of GI contents and air sounds in abdomen, but patient threw up the tube. It was removed promptly after. 0205: 2nd attempt was made with success. Confirmation via GI aspiration and air sounds in abdomen, pt. placed up for x-ray. Following the x-ray the patient started to retch and once again started to throw-up the tube. Pt. was in visible distress, hypoxic and turning blueish/purple. 0210: The NG tube was removed and patient recovered and was resting comfortably. 0215: The provider was notified of difficulty w/ NG insertion and new medications were to be ordered to ease the insertion. 0300: The 3rd attempt at inserting a 16 Fr NG tube into the left nares. supervisor grinding Margarita at bedside to assist w/ intervention. Successful placement of the NG tube into the GI tract w/ confirmation via air bolus into abdomen, no aspiration of GI contents. 0307: X-ray reviewed by provider and determined it needed to be inserted further. 0316: supervisor grinding Pedro Schafer at bedside and attempted to advance the tube further w/ minimal success repeat x-ray ordered. Pt. reported fullness in her throat w/ no obvious coiling of the NG tube in her throat on assessment. Patient placed on oxygen for comfort. 0335: X-ray reviewed by primary provider and he was updated on the recent attempt. I was told by the doctor, Leave the tube, I will be in to assess the patient further when I have time.
--- NOTE | 2024-01-29 04:55 | RAD_ITS ---
EXAM: XR ABDOMEN, 1 VIEW CLINICAL INDICATION: NGT placement TECHNIQUE: Frontal supine view of the abdomen/pelvis. COMPARISON: Report from earlier showing small bowel obstruction. A CT prior exam from December 19, 2015 showed small bowel obstruction. FINDINGS: LOWER THORAX: See below. GASTROINTESTINAL TRACT: Unremarkable. Non-obstructive. No bowel or stomach distention. ORGANS: Unremarkable as visualized. No organomegaly. No abnormal calcifications. BONES/JOINTS: No acute pathology. SOFT TISSUES: No acute pathology. TUBES, LINES AND DEVICES: Enteric tube tip in the mid to distal esophagus, roughly 7.8 cm superior to the hemidiaphragm, it was reportedly subsequently removed after another attempt to advance. Mild vascular crowding in the medial lung bases. RAD/Chest 1 View (Portable) IMPRESSION: 1. Enteric tube tip in the mid to distal esophagus roughly 8 cm superior to the expected region of the GE junction. 2. According to the technologist note the tube was retracted and redirected and then removed by the clinician following the study. Electronically Signed: Becky Garcia MD at 7:09 EDT ,
--- NOTE | 2024-01-29 04:55 | RAD_ITS ---
EXAM: XR SOFT TISSUE NECK CLINICAL INDICATION: NGT placement difficulty TECHNIQUE: Frontal and lateral views of the soft tissues of the neck. COMPARISON: No relevant prior studies available. FINDINGS: AIRWAY: Unremarkable. Grossly patent. SOFT TISSUES: Unremarkable. TUBES, LINES AND DEVICES: The enteric tube is looped once over the oropharynx-upper hypopharynx, otherwise straight course in the neck and upper thorax. RAD/Neck for Soft Tissue IMPRESSION: Looped enteric tube. Electronically Signed: Becky Garcia MD at 7:33 EDT ,
--- NOTE | 2024-01-29 05:44 | RAD_ITS ---
EXAM: XR SOFT TISSUE NECK CLINICAL INDICATION: NGT insertion difficulties TECHNIQUE: Frontal and lateral views of the soft tissues of the neck. COMPARISON: No relevant prior studies available. FINDINGS: AIRWAY: Unremarkable. Grossly patent. SOFT TISSUES: Unremarkable. TUBES, LINES AND DEVICES: Enteric tube is not coiled in the oropharynx or in the hypopharynx. The nasopharynx is not included. OTHER FINDINGS: TECHNIQUE: Single frontal view of the neck. RAD/Neck for Soft Tissue IMPRESSION: Straight course of the oropharyngeal, hypopharyngeal and upper thoracic level of the enteric tube. Electronically Signed: Becky Garcia MD at 7:32 EDT ,
--- NOTE | 2024-01-29 05:57 | ED.RN ---
0520: Provider and radiology at bedside to attempt to uncoil NG tube in patient throat. 0540: Attempt at NG tube placement unsuccessful by provider after 5 attempts by him. NG tube removed. Patient tolerated procedure well.
[2024-01-29] MEDS: 0.9% Normal Saline (1000mL) 1,000 ML 125 ML IV (06:59)
[2024-01-29] MEDS: 0.9% Saline Lock 10 ML Syringe IV ×3 (06:59→14:06)
[2024-01-29 07:04] LABS: Bedside Glucose 104 mg/dL (74-106)
--- NOTE | 2024-01-29 08:05 | EX.PCM.CON.S ---
Assessment & Plan Assessment/Plan (1) Small bowel obstruction: (2) History of small bowel obstruction: PLAN: Plan Did review patient's CT abdomen pelvis. Patient did have solid stool in the rectum with results with an enema. Also has liquid stool in the right colon on CT. Patient is also on Mounjaro which will slow down the small bowel follow-through. Will plan to only give half of the Gastrografin as we are unable to place an NG and patient will likely need more time for this to move through out of the stomach. Patient is agreeable with conservative management and does understand if this is not the get through to the colon we would be talking about more urgent surgery. Labs pending this morning, including lactic acid. Leila Livingston M.D. Pager: [phone] [facility] [address] [place] [address], [facility], [address] [place] [id number] Office: [phone] HPI Consult Data Date of Consult: 01/29/24 HPI Narrative Reason for Consultation: sbo HPI Narrative: ART NOVAK, is a 63 F who presents to the ER due to left lower quadrant pain started about 4 PM yesterday. Patient rates it a 10/10 and she came and did have nausea and vomiting. Patient had no vomiting since being in the hospital. Patient has had several abdominal surgeries including in 2013 splenectomy and distal pancreatectomy for ITP and a lesion in her pancreas at [facility], open appendectomy in 2019 in [facility], small bowel resection due to small bowel obstruction sounds like that was more than 2000. Patient CT abdomen pelvis is because small bowel obstruction had some dilated small bowel also had liquid stool throughout her right colon and a decent amount of solid stool in her rectum. Patient did get an enema with good results downstairs. Patient was unable to have her NG placed possibly due to hiatal hernia. Patient states she has a history of food getting stuck in her esophagus but that has not been recent, patient states her last EGD was a while ago. Currently patient states her pain is a 4/10 and improved. Patient denies any nausea or vomiting currently. Patient white blood count 22 but patient also had a splenectomy previously and patient's hemoglobin was 17.2 so likely she was dehydrated. [facility] Medical History Essential hypertension Diverticulitis large intestine Arthritis Current smoker Cocaine abuse Obesity Chronic kidney disease, stage 3 BENIGN PANCREATIC MASS GERD (gastroesophageal reflux disease) Depression Hyperlipidemia Anxiety Nicotine addiction Dyslipidemia Back pain Fatigue CAD (coronary artery disease) Chest pain Home Medications ?Medication ?Instructions ?Recorded ?Last Taken ?Type famotidine 20 mg tablet 20 mg PO BID #28 tabs 12/18/15 02/21/20 Rx lisinopril 10 mg tablet 10 mg PO QDAY 12/04/17 02/21/20 History metformin 500 mg tablet 500 mg PO BID 01/28/24 Unknown History tirzepatide 5 mg/0.5 mL 5 mg subcut Q7D 01/28/24 01/23/24 History subcutaneous pen injector (Mounjaro) duloxetine 30 mg capsule,delayed 30 mg PO DAILY depression 01/29/24 Unknown History release Allergy/AdvReac Type Severity Reaction Status Date / Time aspirin AdvReac Severe Nausea Verified 01/28/24 21:14 Family History Brother Diabetes CAD (coronary artery disease) stents Heart disease Hypertension High cholesterol Mother Laryngeal cancer diagnosed in her 30's Osteoarthritis Father Heart disease Myocardial infarction age 39 Aunt Diabetes maternal aunts, age 60's Lung cancer age 61 Uncle Diabetes Grandmother CVA (cerebral vascular accident) maternal Diabetes Surgical History History of appendectomy History of resection of pancreas Hx of tonsillectomy S/P laparoscopy H/O splenectomy H/O: S/P laparoscopic cholecystectomy S/P partial colectomy Social History Smoking Status: Heavy Smoker (>10/day) alcohol intake: never ROS Constitutional Constitutional: Reports anorexia; Denies fever(s) Eyes Eyes: Denies change in vision ENT HEENT: Denies dysphagia Cardiovascular Cardiovascular: Denies chest pain Respiratory/Chest Respiratory/Chest: Denies productive cough Gastrointestinal Gastrointestinal: Reports abdominal pain, constipation, nausea and vomiting Genitourinary Genitourinary: Denies dysuria Musculoskeletal Musculoskeletal: Denies joint swelling Integumentary Integumentary: Denies jaundice Neurologic Neurologic: Denies focal weakness Psychiatric Psychiatric: Denies anxiety Endocrine Endocrinology: Denies palpitations Hematologic/Lymphatic Hematologic/Lymphatic: Denies easy bleeding Physical Exam Const alert, oriented x3 and no apparent distress HEENT normocephalic and head/scalp atraumatic Resp normal respiratory effort Cardio regular rate GI soft to palpation; Negative for non-distended Palpation: tender LLQ (No rebound); Negative for guarding Extremity no clubbing, cyanosis or edema Neuro CN's II-XII intact bilaterally Psych mental status grossly normal Lab / Micro Data 01/29/24 08:31 01/29/24 08:31 Labs: Laboratory Results - last 24 hr 01/28/24 18:54: Urine Color Yellow, Urine Clarity Sl. Cloudy, Urine pH 5.0, Ur Specific [place] 1.025, Urine Protein 30 H, Urine Glucose (UA) Normal, Urine Ketones 5 H, Urine Occult Blood 10 H, Urine Nitrite Negative, Urine Bilirubin 1 H, Urine Urobilinogen 4 H, Ur Leukocyte Esterase 100 H, Urine RBC 0 SEEN, Urine WBC 0-5 SEEN, Ur Squamous Epith Cells 10-25 SEEN, Calcium Oxalate Crystal 2+, Urine Bacteria 3+, Urine Mucus 0 SEEN 01/28/24 21:25: WBC 22.3 H, RBC 5.14, Hgb 17.2 H, Hct 51.7 H, MCV 100.6 H, MCH 33.5 H, MCHC 33.3, RDW Std Deviation 52.7 H, RDW Coeff of Sravanthi 14.0, Plt Count 434, MPV 9.4, Immature Gran % (Auto) 0.900, Neut % (Auto) 69.6, Lymph % (Auto) 18.5 L, [place] % (Auto) 8.6, Eos % (Auto) 1.8, Baso % (Auto) 0.6, Absolute Neuts (auto) 15.5 H, Absolute Lymphs (auto) 4.14, Nucleated RBC % 0, Differential Comment SCANNED, Diff Path Review December, Sodium 137, Potassium 4.0, Chloride 105, Carbon Dioxide 24.0, Anion Gap 8, BUN 21 H, Creatinine 1.44 H, Est GFR (MDRD) Af Amer 47 L, Est GFR (MDRD) Non-Af 39 L, BUN/Creatinine Ratio 14.6, Glucose 136 H, Calcium 10.4 H, Total Bilirubin 0.30, AST 19, ALT 25, Alkaline Phosphatase 93, Total Protein 8.6 H, Albumin 4.2, Globulin 4.4 H, Albumin/Globulin Ratio 1.0 01/29/24 02:54: Urine Color Yellow, Urine Clarity Clear, Urine pH 5.0, Ur Specific [place] 1.015, Urine Protein 30 H, Urine Glucose (UA) Normal, Urine Ketones Negative, Urine Occult Blood 10 H, Urine Nitrite Negative, Urine Bilirubin Negative, Urine Urobilinogen 1 H, Ur Leukocyte Esterase 25 H, Urine RBC 0 SEEN, Urine WBC 0 SEEN, Ur Squamous Epith Cells 5-10 SEEN, Urine Bacteria 0 SEEN, Urine Mucus 0 SEEN 01/29/24 06:40: POC Glucose 104 Imaging Radiology Impression KUB X-Ray 01/29/24 02:08 IMPRESSION: The enteric tube tip is in the distal esophagus near the GE junction. Consider advancing the tube at least 15 cm to ensure side port placement in the stomach. Electronically Signed: Becky Garcia MD at 4:46 EDT , ADDENDUM: 01/29/24 0458 IMPRESSION: The enteric tube tip is in the distal esophagus near the GE junction. Consider advancing the tube at least 15 cm to ensure side port placement in the stomach. N.B. : Alvin Gamboa MD, confirmed on 01/29/2024 04:51:04 (ET) that the healthcare facility has received the radiology report. Electronically Signed: Becky Garcia MD at 4:46 EDT , KUB X-Ray 01/29/24 03:07 IMPRESSION: 1. Enteric tube tip appears to be in the distal esophagus. 2. Small hiatal hernia is present on review of the prior CT. Electronically Signed: Becky Garcia MD at 4:48 EDT , KUB X-Ray 01/29/24 03:27 IMPRESSION: Enteric tube tip apparently in the distal esophagus. Electronically Signed: Becky Garcia MD at 4:49 EDT , Chest X-Ray 01/29/24 04:55 IMPRESSION: 1. Enteric tube tip in the mid to distal esophagus roughly 8 cm superior to the expected region of the GE junction. 2. According to the technologist note the tube was retracted and redirected and then removed by the clinician following the study. Electronically Signed: Becky Garcia MD at 7:09 EDT Reading Location ID and State: [email or web address] / [place] Tel , Service support , Soft Tissue Neck X-Ray 01/29/24 04:55 IMPRESSION: Looped enteric tube. Electronically Signed: Becky Garcia MD at 7:33 EDT Reading Location ID and State: [email or web address] / [place] Tel , Service support , Soft Tissue Neck X-Ray 01/29/24 05:44 IMPRESSION: Straight course of the oropharyngeal, hypopharyngeal and upper thoracic level of the enteric tube. Electronically Signed: Becky Garcia MD at 7:32 EDT , Abdomen/Pelvis CT 01/29/24 23:19 IMPRESSION: 1. Multiple thick walled and mildly edematous-appearing collapsed small bowel loops in the left lower quadrant and significant discrepancy, dilatation of more proximal mid small bowel loops. Suspected mechanical obstruction versus pseudoobstruction due to underlying adhesions, enteritis or ischemia. Suspected SBO with mild superimposed small bowel edema. 2 major vessels. 2. The colon is not decompressed, there is moderate fluid in most of the colon and mucosal enhancement, suggesting enterocolitis. 3. Moderate diverticulosis of descending and sigmoid colon. No evidence of acute diverticulitis. 4. Appendectomy. 5. Cholecystectomy. Partial pancreatectomy. Splenectomy. Small stable left adrenal nodule, presumed small adenoma. Small stable hiatal hernia. 6. Multiple and bilateral renal cysts with multiple new small cortical cysts since 2013 but no evidence of complex cystic mass. Electronically Signed: Becky Garcia MD at 2:00 EDT , ADDENDUM: 01/29/24216 IMPRESSION: 1. Multiple thick walled and mildly edematous-appearing collapsed small bowel loops in the left lower quadrant and significant discrepancy, dilatation of more proximal mid small bowel loops. Suspected mechanical obstruction versus pseudoobstruction due to underlying adhesions, enteritis or ischemia. Suspected SBO with mild superimposed small bowel edema. 2 major vessels. 2. The colon is not decompressed, there is moderate fluid in most of the colon and mucosal enhancement, suggesting enterocolitis. 3. Moderate diverticulosis of descending and sigmoid colon. No evidence of acute diverticulitis. 4. Appendectomy. 5. Cholecystectomy. Partial pancreatectomy. Splenectomy. Small stable left adrenal nodule, presumed small adenoma. Small stable hiatal hernia. 6. Multiple and bilateral renal cysts with multiple new small cortical cysts since 2013 but no evidence of complex cystic mass. N.B. : The above Results were Read Back by Becky Garcia MD to Alvin Gamboa MD, and understanding confirmed on 01/29/2024 02:10:53 (ET). Electronically Signed: Becky Garcia MD at 2:00 EDT , Charges/Coding Visit Charges Inpatient E&M: 38190 Init Hosp L3
[2024-01-29 08:22] LABS: Lactic Acid 0.7 mmol/L (0.4-1.9)
[2024-01-29 08:32] LABS: Vitamin B12 181 pg/mL (211-911)
[2024-01-29 08:42] LABS: Absolute Neutrophil Count 9.6 X10^3/uL (2.0-7.7); Basophil# 0.06 X10^3/uL; Basophil% 0.4 % (0-1); Eosinophil# 0.28 X10^3/uL; Eosinophils% 1.9 % (0-5); Hematocrit 44.2 % (37-47); Hemoglobin 14.3 g/dL (12.0-15.0); Mean Corp Hgb Conc 32.4 g/dL (32-36); Mean Corpuscular Hgb 33.5 pg (27.0-32.0); Mean Corpuscular Volume 103.5 fL (81-99); Mean Platelet Vol. 9.4 fl (6.2-12.0); Monocyte# 1.42 X10^3/uL; Monocyte% 9.7 % (0-10); NRBC Flagged by Analyzer 0 % (0-5); Neutrophil # 9.56 X10^3/uL (2.7-7.7); Neutrophil % 65.7 % (47-70); Platelet Count 377 K/mm3 (150-450); RBC Distribution Width CV 14.4 % (11.6-14.6); RBC Distribution Width SD 55.5 fl (35.1-43.9); Red Blood Count 4.27 M/mm3 (4.2-5.4); White Blood Count 14.6 K/mm3 (4.4-11.0)
--- NOTE | 2024-01-29 08:45 | RAD_ITS ---
PROCEDURE: SMALL BOWEL SERIES. Gastrografin modified protocol. DATE OF EXAMINATION: January 29, 2024.. INDICATION: Female, 63 years old. Small bowel obstruction. PHYSICIAN: Mike Arango M.D. TECHNIQUE: Radiographic and fluoroscopic images were taken of the small intestine following the ingestion of 60 cc of Gastrografin and 60 cc of water. Gastrografin. Imaging was obtained at the 1 hour, 3 hour and 5 hour following ingestion. COMPARISON: None. FINDINGS: A preliminary supine KUB was obtained. There is an unremarkable bowel gas pattern. Fecal material is present throughout the colon. Phleboliths are present within the pelvis. The lung bases are unremarkable. Normal visualized fundus, body, and antrum of the stomach. Normal duodenal bulb, C-loop, and proximal jejunum. Normal visualized mucosal folds of the jejunum and ileum. There are no demonstrated dilatations, strictures, or masses of the small intestine. There is no mass displacement of the loops of small intestine. There is a normal motor pattern with barium reaching the colon within approximately 3 hours. Spot films under fluoroscopic observation demonstrated a normal terminal ileum and ileocecal valve. RAD/Small Bowel Series Only IMPRESSION: No evidence of a small bowel obstruction at this time. Electronically Signed: Mike Arango MD at 14:12 EDT ,
--- NOTE | 2024-01-29 09:07 | PCM.PN.BLA ---
Physical Exam Narrative GENERAL: cooperative HEENT: Atraumatic; normocephalic EYES; Anicteric, Normal Conjunctiva NECK; supple, normal thyroid, RESPIRATORY: Diminished to auscultation CARDIOVASCULAR: Regular S1 S2, GI: soft, normoactive bowel sounds, : No Renal angle tenderness; EXTREMITIES: No edema, no clubbing, MUSCULOSKELETAL: no muscle wasting NEURO: Awake; no lateralizing signs. SKIN: No Rash PSYCH; Flat affect
--- NOTE | 2024-01-29 09:11 | PCM.PN.HOSP ---
Reason for Visit Reason for Visit: Diagnoses Immune thrombocytopenic purpura (01/29/24) Other specified diseases of blood and blood-forming organs (01/29/24) Complete intestinal obstruction, unspecified as to cause (01/29/24) Nausea with vomiting, unspecified (01/29/24) Tobacco use (01/29/24) Personal history of other diseases of the digestive system (01/29/24) Subjective Subjective Patient is a 63-year-old lady who presented with left-sided abdominal pain with associated nausea and vomiting. Imaging studies obtained on admission demonstrated findings consistent with small bowel obstruction admitted to regular nursing floor for further management Objective Data Objective Data Vital Signs: Vital Signs Temp Pulse Resp BP Pulse Ox O2 Del Method O2 Flow Rate 97.5 F L 64 17 106/63 94 Room Air 3 01/29/24 06:35 01/29/24 06:35 01/29/24 06:35 01/29/24 06:35 01/29/24 06:35 01/29/24 06:35 01/29/24 06:01 Oxygen Flow Rate (L/min) 3 Oxygen Delivery Method Room Air Weight: 86.4 kg Body Mass Index (BMI) 30.7 Lab / Micro Data 01/29/24 08:31 01/29/24 08:31 Labs: Laboratory Results - last 24 hr 01/28/24 18:54: Urine Color Yellow, Urine Clarity Sl. Cloudy, Urine pH 5.0, Ur Specific [place] 1.025, Urine Protein 30 H, Urine Glucose (UA) Normal, Urine Ketones 5 H, Urine Occult Blood 10 H, Urine Nitrite Negative, Urine Bilirubin 1 H, Urine Urobilinogen 4 H, Ur Leukocyte Esterase 100 H, Urine RBC 0 SEEN, Urine WBC 0-5 SEEN, Ur Squamous Epith Cells 10-25 SEEN, Calcium Oxalate Crystal 2+, Urine Bacteria 3+, Urine Mucus 0 SEEN 01/28/24 21:25: WBC 22.3 H, RBC 5.14, Hgb 17.2 H, Hct 51.7 H, MCV 100.6 H, MCH 33.5 H, MCHC 33.3, RDW Std Deviation 52.7 H, RDW Coeff of Sravanthi 14.0, Plt Count 434, MPV 9.4, Immature Gran % (Auto) 0.900, Neut % (Auto) 69.6, Lymph % (Auto) 18.5 L, [place] % (Auto) 8.6, Eos % (Auto) 1.8, Baso % (Auto) 0.6, Absolute Neuts (auto) 15.5 H, Absolute Lymphs (auto) 4.14, Nucleated RBC % 0, Differential Comment SCANNED, Diff Path Review December, Sodium 137, Potassium 4.0, Chloride 105, Carbon Dioxide 24.0, Anion Gap 8, BUN 21 H, Creatinine 1.44 H, Est GFR (MDRD) Af Amer 47 L, Est GFR (MDRD) Non-Af 39 L, BUN/Creatinine Ratio 14.6, Glucose 136 H, Calcium 10.4 H, Total Bilirubin 0.30, AST 19, ALT 25, Alkaline Phosphatase 93, Total Protein 8.6 H, Albumin 4.2, Globulin 4.4 H, Albumin/Globulin Ratio 1.0 01/29/24 02:54: Urine Color Yellow, Urine Clarity Clear, Urine pH 5.0, Ur Specific [place] 1.015, Urine Protein 30 H, Urine Glucose (UA) Normal, Urine Ketones Negative, Urine Occult Blood 10 H, Urine Nitrite Negative, Urine Bilirubin Negative, Urine Urobilinogen 1 H, Ur Leukocyte Esterase 25 H, Urine RBC 0 SEEN, Urine WBC 0 SEEN, Ur Squamous Epith Cells 5-10 SEEN, Urine Bacteria 0 SEEN, Urine Mucus 0 SEEN 01/29/24 06:40: POC Glucose 104 01/29/24 07:13: Lactic Acid 0.7, Vitamin B12 181 L 01/29/24 08:31: WBC 14.6 H, RBC 4.27, Hgb 14.3, Hct 44.2, MCV 103.5 H, MCH 33.5 H, MCHC 32.4, RDW Std Deviation 55.5 H, RDW Coeff of Sravanthi 14.4, Plt Count 377, MPV 9.4, Immature Gran % (Auto) 0.300, Neut % (Auto) 65.7, Lymph % (Auto) 22.0, [place] % (Auto) 9.7, Eos % (Auto) 1.9, Baso % (Auto) 0.4, Absolute Neuts (auto) 9.6 H, Absolute Lymphs (auto) 3.20, Nucleated RBC % 0 Radiography Diagnostic Testing: Radiology Impression KUB X-Ray 01/29/24 02:08 IMPRESSION: The enteric tube tip is in the distal esophagus near the GE junction. Consider advancing the tube at least 15 cm to ensure side port placement in the stomach. Electronically Signed: Becky Garcia MD at 4:46 EDT , ADDENDUM: 01/29/24 0458 IMPRESSION: The enteric tube tip is in the distal esophagus near the GE junction. Consider advancing the tube at least 15 cm to ensure side port placement in the stomach. N.B. : Alvin Gamboa MD, confirmed on 01/29/2024 04:51:04 (ET) that the healthcare facility has received the radiology report. Electronically Signed: Becky Garcia MD at 4:46 EDT , KUB X-Ray 01/29/24 03:07 IMPRESSION: 1. Enteric tube tip appears to be in the distal esophagus. 2. Small hiatal hernia is present on review of the prior CT. Electronically Signed: Becky Garcia MD at 4:48 EDT , KUB X-Ray 01/29/24 03:27 IMPRESSION: Enteric tube tip apparently in the distal esophagus. Electronically Signed: Becky Garcia MD at 4:49 EDT , Chest X-Ray 01/29/24 04:55 IMPRESSION: 1. Enteric tube tip in the mid to distal esophagus roughly 8 cm superior to the expected region of the GE junction. 2. According to the technologist note the tube was retracted and redirected and then removed by the clinician following the study. Electronically Signed: Becky Garcia MD at 7:09 EDT Reading Location ID and State: [facility] / [place] Tel , Service support , Soft Tissue Neck X-Ray 01/29/24 04:55 IMPRESSION: Looped enteric tube. Electronically Signed: Becky Garcia MD at 7:33 EDT Reading Location ID and State: [facility] / [place] Tel , Service support , Soft Tissue Neck X-Ray 01/29/24 05:44 IMPRESSION: Straight course of the oropharyngeal, hypopharyngeal and upper thoracic level of the enteric tube. Electronically Signed: Becky Garcia MD at 7:32 EDT Reading Location ID and State: [facility] / [place] Tel , Service support , Abdomen/Pelvis CT 01/29/24 23:19 IMPRESSION: 1. Multiple thick walled and mildly edematous-appearing collapsed small bowel loops in the left lower quadrant and significant discrepancy, dilatation of more proximal mid small bowel loops. Suspected mechanical obstruction versus pseudoobstruction due to underlying adhesions, enteritis or ischemia. Suspected SBO with mild superimposed small bowel edema. 2 major vessels. 2. The colon is not decompressed, there is moderate fluid in most of the colon and mucosal enhancement, suggesting enterocolitis. 3. Moderate diverticulosis of descending and sigmoid colon. No evidence of acute diverticulitis. 4. Appendectomy. 5. Cholecystectomy. Partial pancreatectomy. Splenectomy. Small stable left adrenal nodule, presumed small adenoma. Small stable hiatal hernia. 6. Multiple and bilateral renal cysts with multiple new small cortical cysts since 2013 but no evidence of complex cystic mass. Electronically Signed: Becky Garcia MD at 2:00 EDT Reading Location ID and State: [facility] / [place] Tel , Service support , ADDENDUM: 01/29/24 0217 IMPRESSION: 1. Multiple thick walled and mildly edematous-appearing collapsed small bowel loops in the left lower quadrant and significant discrepancy, dilatation of more proximal mid small bowel loops. Suspected mechanical obstruction versus pseudoobstruction due to underlying adhesions, enteritis or ischemia. Suspected SBO with mild superimposed small bowel edema. 2 major vessels. 2. The colon is not decompressed, there is moderate fluid in most of the colon and mucosal enhancement, suggesting enterocolitis. 3. Moderate diverticulosis of descending and sigmoid colon. No evidence of acute diverticulitis. 4. Appendectomy. 5. Cholecystectomy. Partial pancreatectomy. Splenectomy. Small stable left adrenal nodule, presumed small adenoma. Small stable hiatal hernia. 6. Multiple and bilateral renal cysts with multiple new small cortical cysts since 2013 but no evidence of complex cystic mass. N.B. : The above Results were Read Back by Becky Garcia MD to Alvin Gamboa MD, and understanding confirmed on 01/29/2024 02:10:53 (ET). Electronically Signed: Becky Garcia MD at 2:00 EDT , Physical Exam Narrative GENERAL: cooperative HEENT: Atraumatic; normocephalic EYES; Anicteric, Normal Conjunctiva NECK; supple, normal thyroid, RESPIRATORY: Diminished to auscultation CARDIOVASCULAR: Regular S1 S2, GI: soft, normoactive bowel sounds, : No Renal angle tenderness; EXTREMITIES: No edema, no clubbing, MUSCULOSKELETAL: no muscle wasting NEURO: Awake; no lateralizing signs. SKIN: No Rash PSYCH; Flat affect Assessment & Plan Assessment/Plan (1) Complete small bowel obstruction: (2) Tobacco abuse: PLAN: Plan Patient is a 63-year-old lady who presented with left-sided abdominal pain with associated nausea and vomiting. Imaging studies obtained on admission demonstrated findings consistent with small bowel obstruction admitted to regular nursing floor for further management 1. Small bowel obstruction ? Patient presented with nausea vomiting and abdominal pain admitted to regular nursing floor for conservative management. Case was discussed with Dr. Huddleston with general surgery plans for patient to undergo subsequent evaluation with small bowel follow-through 2. 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 Diabetes mellitus type II -patient's oral hypoglycemics held. Placed on long acting insulin, Accu-Cheks a.c. and at bedtime and covered with sliding scale insulin 4. Hypertension - Blood pressure controlled, home medications continued with dose adjustment as needed 5. Class I obesity with BMI of 31 ? Patient is on Mounjaro 6. Tobacco dependence - Counseled on cessation, offered nicotine patch for tobacco cravings 7. Previous history of ITP ? Resolved patient platelet count on admission was greater than 300 8. Acute kidney injury ? Patient started on IV fluid with subsequent monitoring of electrolytes ordered 9. DVT prophylaxis ? Started on heparin on admission. Discontinued given patient history of ITP Advance planning; did discuss with the patient and family regarding advanced directives as well as CODE STATUS. Did explain the various scenarios involved ( FULL CODE, DNR CCA, DNR CCA with no intubation, and DNR CC and what each meant) patient elected to remain full code with CPR and intubation if warranted. Order was placed. Time spent on discussion 18 minutes. Charges/Coding Procedures Hospitalists Procedures: 15930 Advncd Care Plan 30 Min
[2024-01-29 09:37] LABS: AST(SGOT) 15 U/L (15-37); Alanine Aminotransfer ALT/SGPT 21 U/L (13-56); Albumin, Serum 3.4 g/dL (3.2-5.0); Alkaline Phosphatase 73 U/L (45-117); Anion Gap 5 (5-15); BUN 21 mg/dL (7-18); BUN/Creat Ratio 16.5 RATIO (10-20); Calcium,Total 8.6 mg/dL (8.5-10.1); Chloride 107 mmol/L (98-107); Creatinine, Serum 1.27 mg/dL (0.55-1.02); EST Glomerular Filtration Rate 45 mL/min (>60); Est Glom Filt Rate - Afr Amer 55 mL/min (>60); Estimated Creatinine Clearance 50.86 ml/min; Globulin 3.5 g/dL (2.2-4.2); Glucose 96 mg/dL (74-106); Magnesium 2.4 mg/dL (1.6-2.6); Phosphorus 4.8 mg/dL (2.5-4.9); Potassium 4.3 mmol/L (3.5-5.1); Protein, Total 6.9 g/dL (6.4-8.2); Sodium Level 137 mmol/L (136-145)
[2024-01-29 09:48] LABS: Thyroid Stim Hormone (TSH) 1.63 uIU/mL (0.358-3.74)
--- NOTE | 2024-01-29 09:55 | CASEMGMT ---
RN CM Face to Face with patient for initial transition planning/care coordination assessment. RN CM introduced self and role at [facility]. Patient lying in bed, alert and oriented. Patient willing to participate in assessment and is able to answer all questions appropriately. Care providers, pharmacy, and demographics verified. PCP: [facility] Specialists: none Preferred Pharmacy: [facility] Insurance: [facility] Prescription Benefit: yes Living Will/HPOA: none LNOK: mother, daughter, Living Arrangements: Patient lives with mother in a 2 story home. Patient states she is independent and able to ambulate stairs. Transportation: self, boyfriend DME/HHC: Patient has glucometer and supplies at home. No previous HHC or SNF Patient wishes to discharge home, denies need for home health at this time. Patient states she has no further needs or concerns at this time. CM to follow for discharge planning needs that may arise. Disposition Plan: Patient to discharge home with family support and follow-up plans in place. Orly LOYD, RN, CM
[2024-01-29] MEDS: Morphine 2 MG/ML Syringe IV ×2 (10:24→14:05)
[2024-01-29] MEDS: Pantoprazole Sodium 40 MG in 0.9% Normal Saline (100mL MB+) 100 ML 330 MG IV (10:36)
[2024-01-29] MEDS: Heparin Injection (Vial) 5,000 UNIT/ML VIAL 5000 UNIT SC (10:36)
[2024-01-29 10:44] LABS: Pathologist Review Reviewed
[2024-01-29 11:52] LABS: Bedside Glucose 96 mg/dL (74-106)
[2024-01-29 11:57] LABS: Hemoglobin A1c 5.3 % (3.8-5.6)
--- NOTE | 2024-01-29 15:15 | PCM.DC.SUM ---
Providers Date of Admission: 01/29/24 Date of Discharge: 01/29/24 Primary Care Physician: Dr. Jaspreet Ball, DO Reason For Visit: SMALL BOWEL OBSTRUCTION WITH CT EVIDENCE OF Diagnosis Discharge Diagnosis (1) Complete small bowel obstruction: Status: Acute Code(s): K56.601 - Complete intestinal obstruction, unspecified as to cause (2) Tobacco abuse: Status: Acute Code(s): Z72.0 - Tobacco use Plan Patient is a 63-year-old lady who presented with left-sided abdominal pain with associated nausea and vomiting. Imaging studies obtained on admission demonstrated findings consistent with small bowel obstruction admitted to regular nursing floor for further management 1. Small bowel obstruction ? Patient presented with nausea vomiting and abdominal pain admitted to regular nursing floor for conservative management. Case was discussed with Dr. Huddleston with general surgery plans for patient to undergo subsequent evaluation with small bowel follow-through -Patient responded to conservative management discharge the day after her admission 2. 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 Diabetes mellitus type II -patient's oral hypoglycemics held. Placed on long acting insulin, Accu-Cheks a.c. and at bedtime and covered with sliding scale insulin 4. Hypertension - Blood pressure controlled, home medications continued with dose adjustment as needed 5. Class I obesity with BMI of 31 ? Patient is on Mounjaro 6. Tobacco dependence - Counseled on cessation, offered nicotine patch for tobacco cravings 7. Previous history of ITP ? Resolved patient platelet count on admission was greater than 300 8. Acute kidney injury ? Patient started on IV fluid with subsequent monitoring of electrolytes ordered 9. DVT prophylaxis ? Started on heparin on admission. Discontinued given patient history of ITP Time spent in the patient's overall evaluation,decision-making process, review of diagnostic data, adjustment of management, discussion with other providers, nursing nursing and ancillary staff involved in patient's care documentation, 35 Minutes Medications at Discharge Home Medications famotidine 20 mg tablet 20 mg PO BID #28 tabs 12/18/15 lisinopril 10 mg tablet 10 mg PO QDAY 12/04/17 metformin 500 mg tablet 500 mg PO BID 01/28/24 tirzepatide 5 mg/0.5 mL subcutaneous pen injector (Mounjaro) 5 mg subcut Q7D 01/28/24 duloxetine 30 mg capsule,delayed release 30 mg PO DAILY depression 01/29/24 Hospital Course Summary of Care Provided Minutes Spent on Discharge: 35 Physical Exam Narrative GENERAL: cooperative HEENT: Atraumatic; normocephalic EYES; Anicteric, Normal Conjunctiva NECK; supple, normal thyroid, RESPIRATORY: Diminished to auscultation CARDIOVASCULAR: Regular S1 S2, GI: soft, normoactive bowel sounds, : No Renal angle tenderness; EXTREMITIES: No edema, no clubbing, MUSCULOSKELETAL: no muscle wasting NEURO: Awake; no lateralizing signs. SKIN: No Rash PSYCH; Flat affect Weight / BMI Weight Weight: 86.4 kg Body Mass Index (BMI) 30.7 ABG / Lab / Microbiology Data 01/29/24 08:31 01/29/24 08:31 Laboratory: Laboratory Results - last 24 hr 01/28/24 18:54: Urine Color Yellow, Urine Clarity Sl. Cloudy, Urine pH 5.0, Ur Specific [place] 1.025, Urine Protein 30 H, Urine Glucose (UA) Normal, Urine Ketones 5 H, Urine Occult Blood 10 H, Urine Nitrite Negative, Urine Bilirubin 1 H, Urine Urobilinogen 4 H, Ur Leukocyte Esterase 100 H, Urine RBC 0 SEEN, Urine WBC 0-5 SEEN, Ur Squamous Epith Cells 10-25 SEEN, Calcium Oxalate Crystal 2+, Urine Bacteria 3+, Urine Mucus 0 SEEN 01/28/24 21:25: WBC 22.3 H, RBC 5.14, Hgb 17.2 H, Hct 51.7 H, MCV 100.6 H, MCH 33.5 H, MCHC 33.3, RDW Std Deviation 52.7 H, RDW Coeff of Sravanthi 14.0, Plt Count 434, MPV 9.4, Immature Gran % (Auto) 0.900, Neut % (Auto) 69.6, Lymph % (Auto) 18.5 L, [place] % (Auto) 8.6, Eos % (Auto) 1.8, Baso % (Auto) 0.6, Absolute Neuts (auto) 15.5 H, Absolute Lymphs (auto) 4.14, Nucleated RBC % 0, Differential Comment SCANNED, Diff Path Review Reviewed, Sodium 137, Potassium 4.0, Chloride 105, Carbon Dioxide 24.0, Anion Gap 8, BUN 21 H, Creatinine 1.44 H, Est GFR (MDRD) Af Amer 47 L, Est GFR (MDRD) Non-Af 39 L, BUN/Creatinine Ratio 14.6, Glucose 136 H, Calcium 10.4 H, Total Bilirubin 0.30, AST 19, ALT 25, Alkaline Phosphatase 93, Total Protein 8.6 H, Albumin 4.2, Globulin 4.4 H, Albumin/Globulin Ratio 1.0 01/29/24 02:54: Urine Color Yellow, Urine Clarity Clear, Urine pH 5.0, Ur Specific [place] 1.015, Urine Protein 30 H, Urine Glucose (UA) Normal, Urine Ketones Negative, Urine Occult Blood 10 H, Urine Nitrite Negative, Urine Bilirubin Negative, Urine Urobilinogen 1 H, Ur Leukocyte Esterase 25 H, Urine RBC 0 SEEN, Urine WBC 0 SEEN, Ur Squamous Epith Cells 5-10 SEEN, Urine Bacteria 0 SEEN, Urine Mucus 0 SEEN 01/29/24 06:40: POC Glucose 104 01/29/24 07:13: Hemoglobin A1c 5.3, Lactic Acid 0.7, Vitamin B12 181 L, Folate 6.40, TSH 1.63 01/29/24 08:31: WBC 14.6 H, RBC 4.27, Hgb 14.3, Hct 44.2, MCV 103.5 H, MCH 33.5 H, MCHC 32.4, RDW Std Deviation 55.5 H, RDW Coeff of Sravanthi 14.4, Plt Count 377, MPV 9.4, Immature Gran % (Auto) 0.300, Neut % (Auto) 65.7, Lymph % (Auto) 22.0, [place] % (Auto) 9.7, Eos % (Auto) 1.9, Baso % (Auto) 0.4, Absolute Neuts (auto) 9.6 H, Absolute Lymphs (auto) 3.20, Nucleated RBC % 0, Sodium 137, Potassium 4.3, Chloride 107, Carbon Dioxide 25.0, Anion Gap 5, BUN 21 H, Creatinine 1.27 H, Estim Creat Clear Calc 50.86, Est GFR (MDRD) Af Amer 55 L, Est GFR (MDRD) Non-Af 45 L, BUN/Creatinine Ratio 16.5, Glucose 96, Calcium 8.6, Phosphorus 4.8, Magnesium 2.4, Total Bilirubin 0.50, Direct Bilirubin 0.10, AST 15, ALT 21, Alkaline Phosphatase 73, Total Protein 6.9, Albumin 3.4, Globulin 3.5 01/29/24 11:33: POC Glucose 96 Radiography Diagnostic Testing: Radiology Impression KUB X-Ray 01/29/24 02:08 IMPRESSION: The enteric tube tip is in the distal esophagus near the GE junction. Consider advancing the tube at least 15 cm to ensure side port placement in the stomach. Electronically Signed: Becky Garcia MD at 4:46 EDT Reading Location ID and State: [facility] / [place] Tel , Service support , ADDENDUM: 01/29/24 0458 IMPRESSION: The enteric tube tip is in the distal esophagus near the GE junction. Consider advancing the tube at least 15 cm to ensure side port placement in the stomach. N.B. : Alvin Gamboa MD, confirmed on 01/29/2024 04:51:04 (ET) that the healthcare facility has received the radiology report. Electronically Signed: Becky Garcia MD at 4:46 EDT Reading Location ID and State: [facility] / [place] Tel , Service support , KUB X-Ray 01/29/24 03:07 IMPRESSION: 1. Enteric tube tip appears to be in the distal esophagus. 2. Small hiatal hernia is present on review of the prior CT. Electronically Signed: Becky Garcia MD at 4:48 EDT Reading Location ID and State: [facility] / [place] Tel , Service support , KUB X-Ray 01/29/24 03:27 IMPRESSION: Enteric tube tip apparently in the distal esophagus. Electronically Signed: Becky Garcia MD at 4:49 EDT , Chest X-Ray 01/29/24 04:55 IMPRESSION: 1. Enteric tube tip in the mid to distal esophagus roughly 8 cm superior to the expected region of the GE junction. 2. According to the technologist note the tube was retracted and redirected and then removed by the clinician following the study. Electronically Signed: Becky Garcia MD at 7:09 EDT , Soft Tissue Neck X-Ray 01/29/24 04:55 IMPRESSION: Looped enteric tube. Electronically Signed: Becky Garcia MD at 7:33 EDT , Soft Tissue Neck X-Ray 01/29/24 05:44 IMPRESSION: Straight course of the oropharyngeal, hypopharyngeal and upper thoracic level of the enteric tube. Electronically Signed: Becky Garcia MD at 7:32 EDT , Small Bowel X-Ray 01/29/24 08:45 IMPRESSION: No evidence of a small bowel obstruction at this time. Electronically Signed: Mike Arango MD at 14:12 EDT , Abdomen/Pelvis CT 01/29/24 23:19 IMPRESSION: 1. Multiple thick walled and mildly edematous-appearing collapsed small bowel loops in the left lower quadrant and significant discrepancy, dilatation of more proximal mid small bowel loops. Suspected mechanical obstruction versus pseudoobstruction due to underlying adhesions, enteritis or ischemia. Suspected SBO with mild superimposed small bowel edema. 2 major vessels. 2. The colon is not decompressed, there is moderate fluid in most of the colon and mucosal enhancement, suggesting enterocolitis. 3. Moderate diverticulosis of descending and sigmoid colon. No evidence of acute diverticulitis. 4. Appendectomy. 5. Cholecystectomy. Partial pancreatectomy. Splenectomy. Small stable left adrenal nodule, presumed small adenoma. Small stable hiatal hernia. 6. Multiple and bilateral renal cysts with multiple new small cortical cysts since 2013 but no evidence of complex cystic mass. Electronically Signed: Becky Garcia MD at 2:00 EDT , ADDENDUM: 01/29/24216 IMPRESSION: 1. Multiple thick walled and mildly edematous-appearing collapsed small bowel loops in the left lower quadrant and significant discrepancy, dilatation of more proximal mid small bowel loops. Suspected mechanical obstruction versus pseudoobstruction due to underlying adhesions, enteritis or ischemia. Suspected SBO with mild superimposed small bowel edema. 2 major vessels. 2. The colon is not decompressed, there is moderate fluid in most of the colon and mucosal enhancement, suggesting enterocolitis. 3. Moderate diverticulosis of descending and sigmoid colon. No evidence of acute diverticulitis. 4. Appendectomy. 5. Cholecystectomy. Partial pancreatectomy. Splenectomy. Small stable left adrenal nodule, presumed small adenoma. Small stable hiatal hernia. 6. Multiple and bilateral renal cysts with multiple new small cortical cysts since 2013 but no evidence of complex cystic mass. N.B. : The above Results were Read Back by Becky Garcia MD to Alvin Gamboa MD, and understanding confirmed on 01/29/2024 02:10:53 (ET). Electronically Signed: Becky Garcia MD at 2:00 EDT , D/C Instructions Discharge Diet: No restrictions Discharge Activity: Return to Normal Activity Call your doctor if you observe: Fever of 101 or Higher, Shortness of breath, Fainting spells and Chest pain Meaningful Use Info Meaningful Use Meaningful Use Diagnoses (Choose all that apply): None applicable Ischemic Stroke Statin Dosing Therapy Reference: STATIN DOSE THERAPY REFERENCE: * Patients > 75 years receive moderate or high dose statin therapy. * Patients 75 years or YOUNGER should receive HIGH intensity statin dose unless contraindicated. You will be required to document reason for non-treatment if statin daily dose does not meet guidelines. HIGH DOSE STATIN THERAPY DAILY Atorvastatin > than or = to 40 mg Rosuvastatin > than or = to 20 mg Amlodipine + Atorvastatin > than or = to 2.5/40 mg Ezetimibe + Simvastatin 10/80 mg Simvastatin 80mg Discharge Plan Admission Admit Date/Time: 01/29/24 04:20 Attending Provider: Kalin Carmichael Primary Care Provider: Jaspreet Ball Consulting Providers: Kalin Huff Discharge Orders/Prescriptions Prescriptions: Continued lisinopril 10 mg tablet 10 mg PO QDAY famotidine 20 MG tablet 20 mg PO BID Qty: 28 0RF metformin 500 mg tablet 500 mg PO BID Mounjaro 5 mg/0.5 mL pen injector 5 mg subcut Q7D duloxetine 30 mg capsule,delayed release(DR/EC) 30 mg PO DAILY Referrals / Follow Up: Jaspreet Ball DO [Primary Care Provider] - Within 1 Week Disposition Disposition (needs filled in before D/C Order can be placed): Home, Self Care Charges/Coding Visit Charges Inpatient E&M: 33614 Disch Hosp >30min
--- NOTE | 2024-01-29 15:26 | PHA.DC.MR.R ---
Pharmacy [place] Med Reconciliation Pharmacy Service has performed discharge medication reconciliation for this patient. The patient's discharge medication list was reviewed for discrepancies and discrepancies were resolved. Medications at Discharge Home Medications famotidine 20 mg tablet 20 mg PO BID #28 tabs 12/18/15 lisinopril 10 mg tablet 10 mg PO QDAY 12/04/17 metformin 500 mg tablet 500 mg PO BID 01/28/24 tirzepatide 5 mg/0.5 mL subcutaneous pen injector (Adisunjinny) 5 mg subcut Q7D 01/28/24 duloxetine 30 mg capsule,delayed release 30 mg PO DAILY depression 01/29/24
[2024-01-29 17:01] LABS: Bedside Glucose 83 mg/dL (74-106)
--- NOTE | 2024-01-29 23:19 | CT_ITS ---
We are attempting to reach an attending provider to discuss findings. An addendum with communication details will be sent when the communication is complete. EXAM: CT ABDOMEN AND PELVIS WITH INTRAVENOUS CONTRAST CLINICAL INDICATION: LLQ pain/tend, n/v TECHNIQUE: Helically acquired images were obtained of the abdomen and pelvis with intravenous contrast. This CT exam was performed using one or more of the following dose reduction techniques: automated exposure control, adjustment of the mA and/or kV according to patient size, and/or use of iterative reconstruction technique. CONTRAST: IV 100mL Isovue-370 RADIATION DOSE: CTDIvol = 17.59 mGy, DLP = 1469.73 mGy-cm COMPARISON: December 19, 2015 unenhanced exam, low dose CT screening June 14, 2023, enhanced CT December 21, 2013 showing mild hiatal hernia, cholecystectomy, renal cysts, diverticulosis, small left adnexal cyst, question of 2.6 cm x 0.6 cm cystic lesion in the pancreas tail FINDINGS: LOWER THORAX: Mild calcification of coronary arteries. Normal heart size. No significant pericardial effusion. ABDOMEN: LIVER: Unremarkable. Homogeneous. No focal mass. GALLBLADDER AND BILE DUCTS: Cholecystectomy clips are again seen. No intra- or extrahepatic biliary ductal dilation. PANCREAS: The tail of the pancreas has been resected since 2013. No focal cystic or solid mass. SPLEEN: Splenectomy. ADRENALS: There is a similar small nodule in the left adrenal gland, roughly 8 mm x 9 mm compared to 2014. KIDNEYS AND URETERS: Multiple and bilateral renal cysts, there are multiple new or better seen small cysts in the upper-mid left kidney, the dominant bilateral renal cysts appear simple kidneys enhance symmetrically. Normal renal size and position. No hydronephrosis. STOMACH AND BOWEL: There is moderate fluid in the proximal half of the colon. Moderate diverticulosis of much of the splenic flexure and descending colon, moderate stool in the distal sigmoid and rectum. No evidence of acute diverticulitis.Mild vascular crowding adjacent to thick-walled narrowed small bowel in the left lower quadrant best seen on coronal images 58 through 62 with associated discrepancy in bowel size in the left lower quadrant, apparent small bowel obstruction. Maximum small bowel diameter 3.6 cm in the mid abdomen. Completely collapsed and mildly thick-walled small bowel loops in the left lower quadrant. Collapsed terminal ileum on the right. The major mesenteric vessels appear patent. PELVIS: APPENDIX: Appendectomy. BLADDER: Unremarkable. REPRODUCTIVE: Previously seen small hypodensity in the left adnexa is no longer apparent. Small uterus remains. ABDOMEN and PELVIS: INTRAPERITONEAL SPACE: Unremarkable. No ascites or other fluid collection. No free air. BONES/JOINTS: Marked disc space narrowing at L5-S1 with endplate sclerosis and spondylosis. Mild vacuum disc at L3-4. Mild degenerative changes at other levels. SOFT TISSUES: Unremarkable. No discrete abdominal or pelvic wall hernia. VASCULATURE: Moderate atherosclerotic calcification of aortoiliac vessels. LYMPH NODES: Mild scattered mesenteric adenopathy, fairly similar to older exams. Postoperative changes of appendectomy are new since 2014. CT/Abdomen/Pelvis W IV Cont ONLY IMPRESSION: 1. Multiple thick walled and mildly edematous-appearing collapsed small bowel loops in the left lower quadrant and significant discrepancy, dilatation of more proximal mid small bowel loops. Suspected mechanical obstruction versus pseudoobstruction due to underlying adhesions, enteritis or ischemia. Suspected SBO with mild superimposed small bowel edema. 2 major vessels. 2. The colon is not decompressed, there is moderate fluid in most of the colon and mucosal enhancement, suggesting enterocolitis. 3. Moderate diverticulosis of descending and sigmoid colon. No evidence of acute diverticulitis. 4. Appendectomy. 5. Cholecystectomy. Partial pancreatectomy. Splenectomy. Small stable left adrenal nodule, presumed small adenoma. Small stable hiatal hernia. 6. Multiple and bilateral renal cysts with multiple new small cortical cysts since 2013 but no evidence of complex cystic mass. Electronically Signed: Becky Garcia MD at 2:00 EDT ,
== END 2024-01-29 17:25 | disposition home or self-care (01) | DRG 390 ==
LOC: ED 01-29 02:11 → MS3 01-29 04:43
PROVIDERS: Surgery; Admitting Provider Internal Medicine; Emergency Provider Emergency Medicine; PCP Family Medicine; Visit Provider Internal Medicine
DX: K56.601 Complete intestinal obstruction, unspecified as to cause (principal); E11.22 Type 2 diabetes mellitus with diabetic chronic kidney disease; D75.89 Other specified diseases of blood and blood-forming organs; F17.200 Nicotine dependence, unspecified, uncomplicated; E66.9 Obesity, unspecified; N18.30 Chronic kidney disease, stage 3 unspecified; I12.9 Hypertensive chronic kidney disease with stage 1 through stage 4 chronic kidney disease, or unspecified chronic kidney disease; F32.A Depression, unspecified; M19.90 Unspecified osteoarthritis, unspecified site; I25.10 Atherosclerotic heart disease of native coronary artery without angina pectoris; K21.9 Gastro-esophageal reflux disease without esophagitis; K52.9 Noninfective gastroenteritis and colitis, unspecified; F41.9 Anxiety disorder, unspecified; Z68.30 Body mass index [BMI] 30.0-30.9, adult; N28.1 Cyst of kidney, acquired; Z79.899 Other long term (current) drug therapy; Z79.84 Long term (current) use of oral hypoglycemic drugs; Z86.2 Personal history of diseases of the blood and blood-forming organs and certain disorders involving the immune mechanism
CPT/HCPCS: 70360; 71045; 74018; 74177; 74250; 80048; 80053; 80076; 81001; 82607; 82746; 82962; 83036; 83605; 83735; 84100; 84443; 85025; 94668; 99252; 99285; 99406; J7030; Q9967; A4216; G0463; J2405

== ENCOUNTER → 2024-01-31 | Outpatient (CLI) | payer MEDICARE, MEDICAID, SELFPAY | END | disposition home or self-care (01) | PROVIDERS: PCP Family Medicine; Referring Provider Nurse Practitioner Family; Visit Provider Nurse Practitioner Family | DX: N39.0 Urinary tract infection, site not specified (principal) | CPT/HCPCS: 87086 ==

== ENCOUNTER → 2024-12-09 | Outpatient (CLI) | payer MEDICAID, SELFPAY | END | disposition home or self-care (01) | PROVIDERS: PCP Family Medicine; Visit Provider Nurse Practitioner Family | DX: R10.9 Unspecified abdominal pain (principal) | CPT/HCPCS: 87086 ==

== ENCOUNTER → 2025-08-11 | Outpatient (CLI) | payer MEDICARE, MEDICAID, SELFPAY | END | disposition home or self-care (01) | PROVIDERS: PCP Family Medicine; Visit Provider Nurse Practitioner Family | DX: R10.A0 Flank pain, unspecified side (principal); N39.0 Urinary tract infection, site not specified | CPT/HCPCS: 87077; 87086; 87088; 87186 ==